=== PATIENT | female | born 1955 | race Caucasian/White ===

== ENCOUNTER 2024-09-15 11:04 | Outpatient (AMB) | payer MEDICARE, OTHER, SELFPAY ==
--- NOTE | 2024-09-15 11:05 | AM.OFFWIN_ITS ---
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- amlodipine mg PO DAILY atorvastatin mg PO DAILY calcitriol mcg PO hydrochlorothiazide mg PO DAILY levothyroxine mcg PO DAILY losartan mg PO DAILY Do you need a note to return to daycare/school/sports/work: No HPI HPI Comments History of Present Illness Details The patient is a 69-year-old female presenting with three weeks of cough and p hlegm, which started to improve before worsening significantly at the beginning of the previous week. Accompanying this worsening is significant nasal congestion and the presence of green mucus. The patient denies fever and chills during this period. She has no history of asthma or Chronic Obstructive Pulmonary Disease (COPD) but is an ex-smoker. She attempted to manage the symptoms with DayQuil, which provided no relief. There is a history of being around sick children at her place of work, leading to concerns of acquiring an infection. Previous allergies to amoxicillin are noted, with azithromycin (Z- Navneet) previously tolerated well. Social History - Employment: Works in an [email or web address]. - No history of active smoking; former s moker. Physical Exam General: Awake, alert. No apparent distress Eyes: Sclera and conjunctiva clear bilaterally Nose: Nares with white d/c, turbinates erythematous and edematous bilat, + maxillary sinus tenderness with palpation bilaterally Ears: Tympanic membranes intact on L, dull, unable to see TM on R d/t cerumen in eAC Throat: Moist mucosa membrane, pharynx within normal limits Cardiovascular: Regular rate and rhythm Respiratory: Clear to auscultation bilaterally Discussion Notes I explained to the patient that she likely has an acute bacterial sinus infection, resulting in postnasal drip and a productive cough, which seems to correlate positively with the green mucus production. I discussed the use of azithromycin (Z-Navneet), given her allergy to amoxicillin, as the medication choice to manage her condition. I also suggested saline rinses as a supportive measure to help with nasal and sinus clearance. The need to take azithromycin with food, starting with two tablets on the first day and one tablet daily for the subsequent days, was emphasized to minimize gastrointestinal upset. We conversed about her environment at school being a potential vector for health issues, and I encouraged her to be mindful of exposure to sick children. I advised her to follow up if symptoms do not improve or worsen. Patient Instructions - Take azithromycin as prescribed: two t ablets on day one, then one tablet daily until the pack is complete. - Take medication with food to avoid sto mach upset. - Consider saline rinses to aid in clear ing nasal passages. - Monitor symptoms, and return if there is no improvement or symptoms worsen. Plan - Prescribed azithromycin for the treatm ent of acute bacterial sinusitis, due to green mucus indicative of a bacterial infection and the lack of improvement with previous medications. - Recommended supportive care through sa line rinses to alleviate sinus congestion. - Advised monitoring of symptoms for res olution or exacerbation, and consider follow-up if conditions do not improve. Patient was informed and verbally consented to the use of an ambient scribe for clinic note documentation during this visit. [facility] Social History Patient Tobacco Use Status: Never used Tobacco Physical Exam Vital Signs: Last Vital Signs Temp 97.6 F 09/15/24 11:07 Pulse 85 09/15/24 11:07 BP 136/76 09/15/24 11:07 Pulse Ox 98 09/15/24 11:07 Oxygen Delivery Method Room Air 09/15/24 11:07 BMI result Body Mass Index 46.1 Assessment & Plan Assessment & Plan (1) Acute bacterial sinusitis: Code(s): J01.90 - Acute sinusitis, unspecified; B96.89 - Other specified bacterial agents as the cause of diseases classified elsewhere (2) Post-nasal drip: Code(s): R09.82 - Postnasal drip Plan . Medications: New azithromycin For 250 mg dose pack: take 500 mg today (day 1), then 250 mg for 4 days (days 2-5) PO 5 days 6 tabs 0RF Coding Level of Care Code Est Pt Level 3 (07826) Diagnoses Acute bacterial sinusitis J01.90; B96.89 Post-nasal drip R09.82
--- OUTSIDE RECORDS SUMMARY | 2024-09-15 11:05 | XMS_ITS | Encounter Summary ---
Author Organization [facility] Address [address] [place] [address] Care Team Providers Care Therapy Aide Name Role Phone Clarita Calloway MD Primary Care Prov ider [facility] Dermatology & Laser Unavaila ble Unavailable Encounter Details Date Type Department Care Team Description 05/26/2023 Orders Only Medical Records [address] [place] [address] Abstract, Provider Social History Tobacco Use Types Packs/Day Years Used Date Smoking Tobacco: Former Cigarettes 0.5 Q uit: 04/14/2022 Smokeless Tobacco: Never Comments:started smoking at age 18 Alcohol Use Standard Drinks/Week Comments No 0 (1 standard drink = 0.6 oz pur e alcohol) Sex Assigned at Date Recorded Female 03/12/2021 10:12 AM EDT Job Start Date Occupation Industry Not on file Not on file Not on file documented as of this encounter Plan of Treatment Not on file documented as of this encounter Procedures Procedure Name Priority Date/Time Associated Diagnosis Comments OUTSIDE PATHOLOGY Routine 05/06/2023 documented in this encounter Results * OUTSIDE PATHOLOGY (05/06/2023) Provider Abstract OUTSIDE LAB documented in this encounter Visit Diagnoses Not on filedocumented in this encounter Care Teams Therapy Aide Relationship Specialty Start Date End Date Clarita Calloway MD [address] [place] [address] PCP - General Internal Medicine 03/16/22 [facility] Dermatology & Laser 07/28/23 Felipe Infante MD Specialist Plastic Surgery 07/28/23 documented as of this encounter
--- OUTSIDE RECORDS SUMMARY | 2024-09-15 11:05 | XMS_ITS | Encounter Summary ---
Author Organization [facility] Address [address] [place] [address] Care Team Providers Care Machine Stamper Name Role Phone Clarita Calloway MD Primary Care Prov ider [facility] Dermatology & Laser Unavaila ble Unavailable Encounter Details Date Type Department Care Team Description 11/07/2023 Orders Only Medical Records [address] [place] [address] Paul Arboleda MD Social History Tobacco Use Types Packs/Day Years [...] Date/Time Associated Diagnosis Comments OUTSIDE PATHOLOGY Routine 11/02/2023 documented in this encounter Results * OUTSIDE PATHOLOGY (11/02/2023) Paul Arboleda MD OUTSIDE LAB documented in this encounter Visit Diagnoses Not on filedocumented in this encounter Care Teams Machine Stamper Relationship Specialty Start Date End Date Clarita Calloway MD [address] [place] [address] PCP - General Internal Medicine 03/16/22 [facility] Dermatology & Laser 07/28/23 Felipe Infante MD Specialist Plastic Surgery 07/28/23 documented as of this encounter
--- OUTSIDE RECORDS SUMMARY | 2024-09-15 11:05 | XMS_ITS | Encounter Summary ---
Author Organization [facility] Address [address] [place] [address] Care Team Providers Care Iron Launder Operator Name Role Phone Malena Taylor MD Primary Care Provider Clarita Ojeda MD Primary Care Prov ider [facility] Dermatology & Laser Unavaila ble Unavailable Reason for Visit * Reason Comments E-prescribe Rx Request Encounter Details Date Type Department Care Team Description 12/14/2019 Refill Adult Medicine [address] [address] Malena Taylor MD E-prescribe Rx Request Social History Tobacco Use Types Packs/Day Years Used Date Smoking Tobacco: Every Day Cigarettes 0.5 Smokeless Tobacco: Never Comments:started smoking at age 18 Alcohol Use Standard Drinks/Week Comments No 0 (1 standard drink = 0.6 oz pur e alcohol) Sex Assigned at Date Recorded Female 03/12/2021 10:12 AM EDT Job Start Date Occupation Industry Not on file Not on file Not on file documented as of this encounter Miscellaneous Notes * Telephone Encounter - Saira Raymundo M.A. - 12/14/2019 2:56 PM EDT Faxed to pharmacy * Telephone Encounter - Kirsten Hopson M.A. - 12/14/2019 10:11 AM EDT Lab Results Component Value Date CHOL 286 09/15/2019 LDL 198 09/15/2019 HDL 58 09/15/2019 TRIG 151 09/15/2019 SGOT 12 08/24/2014 SGPT 9 08/24/2014 * Telephone Encounter - Vanita Vallejo - 12/14/2019 8:42 AM EDT Patient would like script to be: E-PRESCRIBED/FAXED TO PHARMACY WHEN WAS THE PATIENT'S LAST APPOINTMENT IN ADULT MEDICINE? 09/20/19 WHEN WAS THE LAST TIME THE PATIENT SAW THEIR PCP? Same as above Does patient have an upcoming appointment? Yes 12/21/19 (THE MEDICATION REQUESTED IS ON THE MED LIST ABOVE) All of the medications requested were on the CURRENT MEDS list Did you check the Pharmacy information above?: YES Patient wants: 30 -day supply Is this a mail order prescription request ? NO If the refill is from a FAXED refill request what is the RX # listed on the fax? N/A Patients current insurance carrier is: Payor: [employer] / Plan: PPO $20 ANDOVER [id number] / Product Type: PPO [id number] documented in this encounter Plan of Treatment Not on file documented as of this encounter Visit Diagnoses Not on filedocumented in this encounter Care Teams Iron Launder Operator Relationship Specialty Start Date End Date Malena Taylor MD PCP - General Internal Medicine 05/27/14 02/12/22 Clarita Calloway MD [address] [place] [address] PCP - General Internal Medicine 03/16/22 [facility] 07/28/23 Felipe Infante MD Specialist Plastic Surgery 07/28/23 documented as of this encounter
--- OUTSIDE RECORDS SUMMARY | 2024-09-15 11:05 | XMS_ITS | Encounter Summary ---
Author Organization [facility] Address [address] [place] [address] Care Team Providers Care Product Safety Specialist Name Role Phone Malena Taylor MD Primary Care Provider Clarita Ojeda MD Primary Care Prov ider [facility] Dermatology & Laser Unavaila ble Unavailable Encounter Details Date Type Department Care Team Description 03/12/2015 Pt. Referral Request [facility] MyChart [address] [place] [address] Md Segundo Social History Tobacco Use Types Packs/Day Years [...] on filedocumented in this encounter Care Teams Product Safety Specialist Relationship Specialty Start Date End Date Malena Taylor MD PCP - General Internal Medicine 05/27/14 02/12/22 Clarita Calloway MD [address] [place] [address] PCP - General Internal Medicine 03/16/22 [facility] Dermatology & Laser 07/28/23 Felipe Infante MD Specialist Plastic Surgery 07/28/23 documented as of this encounter
--- OUTSIDE RECORDS SUMMARY | 2024-09-15 11:05 | XMS_ITS | Encounter Summary ---
Author Organization [facility] Address [address] [place] [address] Care Team Providers Care C T Tech Name Role Phone Clarita Oliver MD Primary Care Prov ider Reason for Visit * Reason Comments Chronic Kidney Disease Encounter Details Date Type Department Care Team (Latest Contact Info) Description 09/04/2024 2:00 PM EST Office Visit [facility]phrology - [facility] [place] [phone] Rosas Asencio MD [address] [place] [phone] Stage 3a chronic kidney disease (CMS/HCC) (Primary Dx); Morbid obesity (CMS/HCC); Secondary hyperparathyroidism of renal origin (CMS/HCC); Primary hypertension Social History Tobacco Use Types Packs/Day Years Used Date Smoking Tobacco: Former Cigarettes 1 50.7 1 972 - 04/14/2022 Smokeless Tobacco: Never Alcohol Use Standard Drinks/Week Comments No 0 (1 standard drink = 0.6 oz pur e alcohol) Housing Instability Answer Date Recorde d Are you worried that in the next 2 months you may not have stable housing? No 07/23/2024 Food Access & Nutrition Answer Date Rec orded Do you have access to a vari ety of food including fruits and vegetables? Yes 07/23/2024 Access to Healthcare Answer Date Record ed Within the last 3 months, keily escudero many times did you visit the emergency department for your medical care? 0 07/23/2024 Health Literacy Answer Date Recorded How often do you need to hav e someone help you when you read instructions, pamphlets, or other written material from your doctor or pharmacy? Rarely 07/23/2024 Caregiver: How often do you need to have someone help you when you read instructions, pamphlets, or other written material from your doctor or pharmacy? Not on file 07/23/2024 Financial Risk Answer Date Recorded How hard is it for you to pa y for the very basics like food, housing, medical care, and air conditioning / heating? Not very hard 07/23/2024 Transportation Answer Date Recorded Has the lack of transportati on kept you from meetings, work, or from getting things needed for daily living? No Has the lack of transportati on kept you from medical appointments or from getting medications? No 07/23/2024 Social Isolation Answer Date Recorded How often do you feel lonely or isolated from th ose around you? Rarely 07/23/2024 Food Risk Answer Date Recorded Within the past 12 months we worried whether our food would run out before we got money to buy more. Never true 07/23/2024 Within the past 12 months th e food we bought just didn't last and we didn't have money to get more. Never true 07/23/2024 Dependent Care Answer Date Recorded Do you need help finding or paying for care for your loved ones. For example, child care giver or elderly care for an older adult? No 07/23/2024 Education Answer Date Recorded Do you think completing more education or training, like finishing a GED, going to college, or learning a trade, would be helpful for you? No 07/23/2024 Employment and Income Answer Date Recor ded During the last four weeks, have you been actively looking for work? No 07/23/2024 Living Situation Answer Date Recorded What is your living situation? 1 09/23/2023 Sex and Gender Information Value Date Recorded Sex Assigned at Female 07/30/2024 1:55 PM EST Gender Identity Female 07/30/2024 1:55 PM EST Sexual Orientation Straight 07/30/2024 1: 55 PM EST Job Start Date Occupation Industry Not on file Not on file Not on file documented as of this encounter Last Filed Vital Signs Vital Sign Reading Time Taken Comments Blood Pressure 165/86 09/04/2024 1:34 PM EST Pulse 64 09/04/2024 1:34 PM EST Temperature - - Respiratory Rate - - Oxygen Saturation - - Inhaled Oxygen Concentration - - Weight 126 kg (277 lb 3.2 oz) 09/04/2024 1:34 PM EST Height - - Body Mass Index 46.13 07/24/2024 7:32 AM EST documented in this encounter Ordered Prescriptions Prescription Sig Dispensed Refills Start Date End Da te amLODIPine (NORVASC) 5 mg tablet Take 1 tablet (5 mg total) by mouth 1 (one) time each day. 90 each 3 09/04/2024 08/30/2025 calcitrioL (ROCALTROL) 0.25 mcg capsule Take 1 capsule (0.25 mcg total) by mouth every other day. 45 each 3 09/04/2024 09/04/2025 documented in this encounter Progress Notes * Rosas Asencio MD - 09/04/2024 2:00 PM EST Renal follow up note : Shayla Diamond is a 69 y.o. year old female seen today for f/u HPI: Patient is a pleasant female is in my office for follow-up regarding CKD. He overall feels well. Denies any chest pain or shortness of of breath. She does not check her blood pressure readings at home He has some intolerances to antihypertensive medications. He states that she is compliant with her medication regimen he does have history of anxiety/panic attacks She does give history of taking NSAIDs Aleve for knee and ankle pain i.e. 2 tablets as needed. She is a neck smoker's. She denies any GI fluid losses like diarrhea, nausea or vomiting. Patient denies having urinary symptoms of dysuria, urgency urination frequent urination Patient denies any history of renal stones HOME MEDICATIONS: Home Medications alclomethasone (ACLOVATE) 0.05 % cream PLEASE SEE ATTACHED FOR DETAILED DIRECTIONS atorvastatin (LIPITOR) 40 mg tablet Take 1 tablet (40 mg total) by mouth 1 (one) time each day. EPINEPHrine (EpiPen 2-Navneet) 0.3 mg/0.3 mL injection INJECT NEEDED FOR ALLERGIC REACTION DIRECTED levothyroxine (SYNTHROID, LEVOTHROID) 88 mcg tablet TAKE 1 TABLET BY MOUTH EVERY DAY losartan (COZAAR) 50 mg tablet Take 1 tablet (50 mg total) by mouth 1 (one) time each day. amLODIPine (NORVASC) 5 mg tablet Take 1 tablet (5 mg total) by mouth 1 (one) time each day. calcitrioL (ROCALTROL) 0.25 mcg capsule Take 1 capsule (0.25 mcg total) by mouth every other day. ACTIVE MEDICATIONS: Current medications reviewed. ALLERGY: Allergies Allergen Reactions Amoxicillin Possible anaphylactic reaction. Seen at [facility] ER on 04/13/2021. About an hour after intake of amoxicillin for UTI and PB&J sandwich PHYSICAL EXAM: Visit Vitals BP (!) 165/86 Pulse 64 Wt 126 kg (277 lb 3.2 oz) BMI 46.13 kg/m?? OB Status Postmenopausal Smoking Status Former BSA 2.27 m?? No intake/output data recorded. No intake/output data recorded. APPEARANCE: Alert and in no acute distress par EYES: PERRLA, conjunctiva and sclera normal. EARS: External ears normal. Canals clear. NOSE/SINUS: Nares normal. Septum midline. Mucosa normal. No drainage or sinus tenderness. THROAT: no erythema or exudates NECK: Neck supple, no adenopathy, thyroid symmetric and of normal size HEART: RRR with normal S1 and S2 ,no murmurs, no gallops, no JVD appreciated LUNG: clear to auscultation ABDOMEN: Bowel sounds normoactive, no bruits, soft, non-tender, without organomegaly or palpable masses EXTREMITIES: Extremities warm and well perfused without clubbing, cyanosis, or edema NEURO: Awake, alert and oriented x 3, no focal neurological deficit, with symmetrical reflexes SKIN: Skin color, texture, turgor normal. No rashes or lesions. LABS: Phosphorus Date Value Ref Range Status 06/21/2024 3.1 2.5 - 4.5 mg/dL Final PTH Date Value Ref Range Status 06/21/2024 203.3 (H) 18.5 - 88.0 pcg/mL Final No results found for: IRON , TIBC , FERRITIN No results found for: COLORUA , CLARITYUA , SPECGRAVUA , PHUA , PROTUA , GLUCOSEUA , KETONESUA , BILIRUBINUA , BLOODUA , UROBILINOGUA , NITRITEUA ASSESSMENT 1. Stage 3a chronic kidney disease (CMS/HCC) 2. Morbid obesity (CMS/HCC) 3. Secondary hyperparathyroidism of renal origin ([facility]/HCC) 4. Primary hypertension PLAN: Chronic kidney disease stage IIIa: Given longstanding hypertension patient likely has hypertensive nephrosclerosis as a reason for elevated creatinine level I do not have a urinalysis to comment on the possibly of acute GN/interstitial disease No obstruction based on renal ultrasound She does take NSAIDs which could have contributed to her renal insufficiency. Hypertension. Patient likely has baseline essential hypertension d with superimposed hypertension due to renal parenchymal disease Patient blood pressure is inadequately controlled Obesity Second hyperparathyroidism Continue lifestyle modification Patient has been advised to lose weight I have advised patient to avoid using NSAIDs No obstruction based on renal ultrasound Patient has second hyperparathyroidism with vitamin D replacement. She can stop taking the vitamin D after she runs out of this prescription Initiated patient on calcitriol 0.25 mcg every other day with a follow-up set of lab work Creatinine slightly worse and I have taken liberty to discontinue the hydrochlorothiazide Continue losartan Initiated patient on amlodipine 5 mg daily after explained to her about the cough history of edema side effects she has been advised to continue to lose weight. She seems anxious in the office and could have a competent of whitecoat effect Target blood pressure should be systolic less than 120 and diastolic less than 80 Continue statin and keep LDL less than 100 Will check urine protein creatinine ratio-acceptable Thank you documented in this encounter Plan of Treatment Upcoming Encounters Date Type Department Care Team (Late st Contact Info) Description 11/07/2024 9:15 AM EDT Appointment Bone Density - [address] [phone] 01/22/2025 8:30 AM EDT Office Visit Adult Medicine [facility] - [address] [phone] Clarita Oliver MD [address] [place] [address] 03/12/2025 4:00 PM EDT Office Visit Nephrology - [address] [phone] Rosas Asencio MD [address] [place] [address] Scheduled Orders Name Type Priority Associated Diagnoses Orde r Schedule BUN Lab Routine Stage 3a chronic kidney disease (CMS/HCC) Morbid obesity (CMS/HCC) Secondary hyperparathyroidism of renal origin (CMS/HCC) Primary hypertension Expected: 01/08/2025, Expires: 07/13/2025 Creatinine Lab Routine Stage 3a chronic kidney disease (CMS/HCC) Morbid obesity (CMS/HCC) Secondary hyperparathyroidism of renal origin (CMS/HCC) Primary hypertension Expected: 01/08/2025, Expires: 07/13/2025 Electrolyte panel Lab Routine Stage 3a chronic kidney disease (CMS/HCC) Morbid obesity (CMS/HCC) Secondary hyperparathyroidism of renal origin (CMS/HCC) Primary hypertension Expected: 01/08/2025, Expires: 07/13/2025 Protein and creatinine with ratio, urine Lab Routine Stage 3a chronic kidney disease (CMS/HCC) Morbid obesity (CMS/HCC) Secondary hyperparathyroidism of renal origin (CMS/HCC) Primary hypertension Expected: 01/08/2025, Expires: 07/13/2025 PTH, intact and calcium Lab Routine Stage 3a chronic kidney disease (CMS/HCC) Morbid obesity (CMS/HCC) Secondary hyperparathyroidism of renal origin (CMS/HCC) Primary hypertension Expected: 01/08/2025, Expires: 07/13/2025 Parathyroid hormone intact Lab Routine Stage 3a chronic kidney disease (CMS/HCC) Morbid obesity (CMS/HCC) Secondary hyperparathyroidism of renal origin (CMS/HCC) Primary hypertension Expected: 01/08/2025, Expires: 07/13/2025 Calcium Lab Routine Stage 3a chronic kidney disease (CMS/HCC) Morbid obesity (CMS/HCC) Secondary hyperparathyroidism of renal origin (CMS/HCC) Primary hypertension Expected: 01/08/2025, Expires: 07/13/2025 Phosphorus Lab Routine Stage 3a chronic kidney disease (CMS/HCC) Morbid obesity (CMS/HCC) Secondary hyperparathyroidism of renal origin (CMS/HCC) Primary hypertension Expected: 01/08/2025, Expires: 07/13/2025 documented as of this encounter Visit Diagnoses Diagnosis Stage 3a chronic kidney disease (CMS/HCC)- Primary Morbid obesity (CMS/HCC) Morbid obesity Secondary hyperparathyroidism of renal origin (CMS/HCC) Secondary hyperparathyroidism (of renal origin) Primary hypertension Unspecified essential hypertension documented in this encounter Discontinued Medications Medication Sig Discontinue Reason Start Date End Da te hydroCHLOROthiazide (HYDRODIURIL) 25 mg tablet Take 1 tablet (25 mg total) by mouth 1 (one) time each day. 01/24/2024 09/04/2024 documented as of this encounter Additional Health Concerns Assessment Noted Time PHQ-9 Depression Total Score: 0 07/23/20 4:19 PM EST A fall risk assessment has been complete d for the patient 07/22/2024 1:31 PM EST documented as of this encounter Care Teams C T Tech Relationship Specialty Start Date End Date Clarita Oliver MD [address] [place] [phone] PCP - General Internal Medicine 07/20/24 documented as of this encounter
--- OUTSIDE RECORDS SUMMARY | 2024-09-15 11:05 | XMS_ITS | Encounter Summary ---
Author Organization [facility] Address [address] [place] [address] Care Team Providers Care Field Mechanic/Site Lead Name Role Phone Clarita Calloway MD Primary Care Prov ider [facility] Dermatology & Laser Unavaila ble Unavailable Reason for Visit * Reason Onset Date Comments Faxed Order 04/05/2024 [facility] er #[id number] Encounter Details Date Type Department Care Team Description 04/05/2024 Telephone Adult Medicine [address] [address] Clarita Calloway MD [address] [place] [phone] Faxed Order ([facility] Order #[id number]) Social History Tobacco Use Types Packs/Day Years [...] encounter Miscellaneous Notes * Telephone Encounter - Lorelei Acevedo - 04/05/2024 10:06 AM EDT Received order # [id number] from [facility], please sign, date and fax back to [phone]. [address] in providers bin for signature. documented in this encounter Plan of Treatment Not on file documented as of this encounter Visit Diagnoses Not on filedocumented in this encounter Care Teams Field Mechanic/Site Lead Relationship Specialty Start Date End Date Clarita Calloway MD [address] [place] [phone] PCP - General Internal Medicine 03/16/22 [facility] Dermatology & Laser 07/28/23 Felipe Infante MD Specialist Plastic Surgery 07/28/23 documented as of this encounter
--- OUTSIDE RECORDS SUMMARY | 2024-09-15 11:05 | XMS_ITS | Encounter Summary ---
Author Organization [facility] Address [address] [place] [address] Care Team Providers Care Care Assistant Name Role Phone Clarita Calloway MD Primary Care Prov ider [facility] Dermatology & Laser Unavaila ble Unavailable Reason for Visit * Reason Onset Date Comments Faxed Order 04/20/2024 [facility] / Order # [id number] Encounter Details Date Type Department Care Team Description 04/20/2024 Telephone Adult Medicine [address] [address] Clarita Calloway MD [address] [place] [address] [phone] Faxed Order ([facility] / Order # [id number]) Social History Tobacco Use Types Packs/Day Years [...] encounter Miscellaneous Notes * Telephone Encounter - John Srivastava - 04/20/2024 1:58 PM EDT Faxed Order # [id number] From: [facility] Date: 04/04/2024 To be signed and faxed back to [phone] Placed in provider's bin documented in this encounter Plan of Treatment Not on file documented as of this encounter Visit Diagnoses Not on filedocumented in this encounter Care Teams Care Assistant Relationship Specialty Start Date End Date Clarita Calloway MD [address] [place] [address] PCP - General Internal Medicine 03/16/22 [facility] Dermatology & Laser 07/28/23 Felipe Infante MD Specialist Plastic Surgery 07/28/23 documented as of this encounter
--- OUTSIDE RECORDS SUMMARY | 2024-09-15 11:05 | XMS_ITS | Clinical Summary ---
Author Organization [address] Address [address] [facility] [place] [address] Phone Care Team Providers Care Aerospace Stress Engineer Name Role Phone Clarita Oliver MD Primary Care Prov ider Allergies Active Allergy Reactions Criticality Noted Date Comments Amoxicillin 05/04/2021 Possible anaphylactic reaction. Seen at [facility] ER on 04/13/2021. About an hour after intake of amoxicillin for UTI and PB&J sandwich Medications Medication Sig Dispensed Refills Start Date End Date Status alclomethasone (ACLOVATE) 0.05 % cream PLEASE SEE ATTACHED FOR DETAILED DIRECTIONS 05/06/2023 Active atorvastatin (LIPITOR) 40 mg tablet Take 1 tablet (40 mg total) by mouth 1 (one) time each day. 06/14/2024 Active EPINEPHrine (EpiPen 2-Navneet) 0.3 mg/0.3 mL injection INJECT NEEDED FOR ALLERGIC REACTION DIRECTED 04/14/2021 Active losartan (COZAAR) 50 mg tablet Take 1 tablet (50 mg total) by mouth 1 (one) time each day. 06/14/2024 Active levothyroxine (SYNTHROID, LEVOTHROID) 88 mcg tablet TAKE 1 TABLET BY MOUTH EVERY DAY 90 tablet 07/22/2024 Active calcitrioL (ROCALTROL) 0.25 mcg capsule Take 1 capsule (0.25 mcg total) by mouth every other day. 45 each 3 09/04/2024 Active amLODIPine (NORVASC) 5 mg tablet Take 1 tablet (5 mg total) by mouth 1 (one) time each day. 90 each 3 09/04/2024 6 Active hydroCHLOROthiaz homa (HYDRODIURIL) 25 mg tablet Take 1 tablet (25 mg total) by mouth 1 (one) time each day. 01/24/2024 5 Discontinued Active Problems Problem Noted Date Diagnosed Date Secondary hyperparathyroidism of renal origin Morbid obesity 06/19/2024 CKD (chronic kidney disease) stage 3, GFR 30-59 ml/min 06/16/2020 Assessment & Plan (07/27/2024 4:04 PM EST): GFR has been stable around 40. Patient follows regularly with Dr. Asencio. Encouraged to keep the appointments with the specialist. Allergic rhinitis 09/06/2014 Erythrocytosis 09/06/2014 Overview (06/19/2024): Has seen Dr. Aly Fletcher Hypertension 09/06/2014 Assessment & Plan (07/27/2024 4:04 PM EST): Well controlled, today 134/76 Patient is compliant with her medications, currently on hydrochlorothiazide 25mg, and losartan 50 mg. Patient is encouraged to follow a low-salt diet and exercise as much as she can. Will continue same regimen. Leukocytosis 09/06/2014 Overview (06/19/2024): Has seen Dr. Aly Fletcher Panic attacks 09/06/2014 Solar urticaria 09/06/2014 Hyperlipidemia 08/21/2014 Assessment & Plan (07/27/2024 4:04 PM EST): Last LDL was 98. Will continue atorvastatin 40 mg a day. Patient is encouraged to follow a low fat diet and exercise regularly. Hypothyroidism 08/21/2014 Assessment & Plan (07/27/2024 4:04 PM EST): Patient currently on levothyroxine 88 mcg daily. Last TSH within normal limits. Will continue this dose. Encounters Date Type Department Care Team Description 09/04/2024 2:00 PM EST Office Visit Nephrology - [facility] [address] [place] [address] Rosas Asencio MD Stage 3a chronic kidney disease (CMS/HCC) (Primary Dx); Morbid obesity (CMS/HCC); Secondary hyperparathyroidism of renal origin (CMS/HCC); Primary hypertension 07/24/2024 7:30 AM EST Office Visit Adult Medicine [address] [phone] Clarita Interiano MD Encounter for general adult medical examination without abnormal findings (Primary Dx); Primary hypertension; Mixed hyperlipidemia; Hypothyroidism, unspecified type; Stage 3b chronic kidney disease (CMS/HCC); Postmenopausal; Pneumococcal vaccination indicated; History of tobacco use; Trigger finger of right thumb; Advance care planning 07/15/2024 Telephone Adult Medicine [address] [phone] Clarita Interiano MD from Last 3 Months Immunizations Name Administration Dates Next Due Pneumococcal conjugate 20 va lent (Prevnar 20, PCV 20) 2mo and older 07/24/2024 Pneumococcal polysaccharide 23 valent (Pneumovax 23) 2yo and older 10/03/2012 Tdap Tetanus diptheria acell ular pertussis (Boostrix; Adacel) 7yo and older 08/21/2014,03/15/2012 Surgical History Surgery Date Site/Laterality Comments OTHER SURGICAL HISTORY PROCEDURE: DENIES PREVIOUS SURGERY Medical History Medical History Date Comments Panic attacks 09/06/2014 DX:Panic attacks Hypertension 09/06/2014 DX:Hypertension Allergic rhinitis 09/06/2014 DX:Allergic rh initis Historical Medical 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; COMMENT: Has seen Dr Pierce Leukocytosis 09/06/2014 DX:Leukocytosis; COMMENT: Has seen Dr Pierce Solar urticaria 09/06/2014 DX:Solar urticar ia Family History Relation Name Status Comments Father colono ca at ag e 75 Mother dementia, hyper lipid, htn, heart valve problems Social History Tobacco Use Types Packs/Day Years Used Date Smoking Tobacco: Former Cigarettes 1 50.7 1 972 - 04/14/2022 Smokeless Tobacco: Never Tobacco Cessation:Counseling Given: Not Answered Alcohol Use Standard Drinks/Week Comments No 0 [...] Record ed Within the last 3 months, ho w many times did you visit the emergency [...] care for your loved ones. For example, early childhood worker or elderly care for an older adult? [...] file Not on file Not on file Obstetrics History Last Filed Vital Signs Vital Sign Reading Time Taken Comments Blood Pressure 165/86 09/04/2024 1:34 PM EST Pulse 64 09/04/2024 1:34 PM EST Temperature 36.1 ??C (97 ??F) 07/24/2024 7:32 AM EST Respiratory Rate 16 07/24/2024 7:32 AM EST Oxygen Saturation - - Inhaled Oxygen Concentration - - Weight 126 kg (277 lb 3.2 oz) 09/04/2024 1:34 PM EST Height 165.1 cm (5' 5 ) 07/24/2024 7:32 AM EST Body Mass Index 46.13 07/24/2024 7:32 AM EST Plan of Treatment Upcoming Encounters Date Type Department Care Team (Late st Contact Info) Description 11/07/2024 9:15 AM EDT Appointment Bone Density - [address] [phone] 01/22/2025 8:30 AM EDT Office Visit Adult Medicine [facility] - [address] [phone] Clarita Oliver MD [address] [place] [address] 03/12/2025 4:00 PM EDT [facility] [address] [place] [phone] Rosas Asencio MD [address] [place] [address] Health Maintenance Due Date Last Done Comments Zoster Vaccines (1 of 2) 01/03/1976 RSV Immunization Patients 60 + Years Old (1 - Risk 60-74 years 1-dose series) 2017 COVID-19 Vaccine (2 - Modern a risk series) 12/13/2020 11/15/2020 Lung Cancer Screening (Low Dose CT) 07/24/2022 Osteoporosis Screening (Bone Density Screening) 07/24/2022 DTaP,Tdap,and Td Vaccines (3 - Td or Tdap) 08/21/2024 08/21/2014, 03/15/2012 Hypertension/CHF/CAD Annual BMP Blood Test 06/21/2025 06/21/2024, 03/03/2023 Depression Screening 07/23/2025 07/23/2024, 07/20/2023 Social Influencers of Health Screening 07/23/2025 07/23/2024 Falls Risk Assessment 07/24/2025 07/24/2024 Medicare Annual Wellness Visit 07/24/2025 07/24/2024 Breast Cancer Screening 07/24/2026 Post poned from 1957 (Patient Refused) Colorectal Cancer Screening: Colonoscopy 11/01/2028 11/02/2023 Cholesterol Screening (Lipid Panel) 07/23/2029 07/23/2024, 12/29/2023, 12/29/2023 Hepatitis C Screening Completed 08/24/2014 Pneumococcal Vaccine: 65+ Years Completed 07/24/2024, 10/03/2012 HIB Vaccines Aged Out No longer eligi ble based on patient's age to complete this topic HPV Vaccines Aged Out No longer eligi ble based on patient's age to complete this topic Hepatitis A Vaccines Aged Out No long er eligible based on patient's age to complete this topic Hepatitis B Vaccines Aged Out No long er eligible based on patient's age to complete this topic IPV Vaccines Aged Out No longer eligi ble based on patient's age to complete this topic Influenza Vaccine Discontinued MMR Vaccines Aged Out No longer eligi ble based on patient's age to complete this topic Meningococcal ACWY Vaccine Aged Out N o longer eligible based on patient's age to complete this topic RSV Immunization Patients Under 20 months Aged Out No longer eligible b ased on patient's age to complete this topic Varicella Vaccines Aged Out No longer eligible based on patient's age to complete this topic Procedures Procedure Name Priority Date/Time Associated Diagnosis Comments CBC WITH AUTO DIFFERENTIAL Routine 07/23/2024 11:07 AM EST Primary hypertension Hypothyroidism, unspecified type CBC AND DIFFERENTIAL Routine 07/23/2024 11:07 AM EST Primary hypertension Hypothyroidism, unspecified type LIPID PANEL WITH REFLEX TO DIRECT LDL Routine 07/23/2024 11:07 AM EST Primary hypertension Hypothyroidism, unspecified type THYROID STIMULATING HORMONE WITH REFLEX TO FREE T4 AND FREE T3 Routine 07/23/2024 11:07 AM EST Primary hypertension Hypothyroidism, unspecified type BUN Routine 06/21/2024 9:22 AM EST Hyperlipidemia, unspecified hyperlipidemia type Hypertension Leukocytosis CREATININE, SERUM Routine 06/21/2024 9:2 2 AM EST Hyperlipidemia, unspecified hyperlipidemia type Hypertension Leukocytosis ELECTROLYTE PANEL Routine 06/21/2024 9:2 2 AM EST Hyperlipidemia, unspecified hyperlipidemia type Hypertension Leukocytosis CALCIUM Routine 06/21/2024 9:22 AM EST Hyperlipidemia, unspecified hyperlipidemia type Hypertension Leukocytosis PHOSPHORUS Routine 06/21/2024 9:22 AM EST Hyperlipidemia, unspecified hyperlipidemia type Hypertension Leukocytosis PARATHYROID HORMONE INTACT Routine 06/21/2024 9:22 AM EST Hyperlipidemia, unspecified hyperlipidemia type Hypertension Leukocytosis VITAMIN D 25 HYDROXY Routine 06/21/2024 9:22 AM EST Hyperlipidemia, unspecified hyperlipidemia type Hypertension Leukocytosis HM COLONOSCOPY Routine 11/02/2023 DEPRESSION SCREENING Routine 07/20/2023 HEPATITIS C SCREENING Routine 08/24/2014 from Last 3 Months or Most Recently Relevant to Health Maintenance Results * Thyroid stimulating hormone with reflex to free t4 and free t3 (07/23/2024 11:07 AM EST) TSH 1.18 0.40 - 4.00 mcIU/mL LAB CHEMISTRY METHOD 07/23/2024 4:59 PM EST [facility] Blood Venous blood specimen / Unknown Venipuncture / Unknown 07/23/2024 11:07 AM EST 07/23/2024 11:07 AM EST Clarita Oliver MD LAB BLOOD ORDERABLES [facility] [address] [place] [address], * Lipid panel with reflex to direct LDL (07/23/2024 11:07 AM EST) Cholesterol 198 0 - 200 mg/dL LAB CHEMISTRY METHOD 07/23/2024 4:54 PM [facility] Triglycerides 145 0 - 150 mg/dL LAB CHEMISTRY METHOD 07/23/2024 4:54 PM [facility] HDL 71 >=40 mg/dL LAB CHEMISTRY METHOD 07/23/2024 4:54 PM [facility] LDL Calculated 98 0 - 100 mg/dL LAB CHEMISTRY METHOD 07/23/2024 4:54 PM [facility] VLDL Cholesterol Stevie 29 mg/dL LAB CHEMISTRY METHOD 07/23/2024 4:54 PM [facility] Non HDL Chol. (LDL+VLDL) 127 <145 mg/dL LAB CHEMISTRY METHOD 07/23/2024 4:54 PM [facility] Chol/HDL Ratio 2.8 0.0 - 4.4 LAB CHEMISTRY METHOD 07/23/2024 4:54 PM [facility] Blood Venous blood specimen / Unknown Venipuncture / Unknown 07/23/2024 11:07 AM EST 07/23/2024 11:07 AM EST Clarita Oliver MD LAB BLOOD ORDERABLES [facility] [address] [place] [address], * (ABNORMAL) CBC auto differential (07/23/2024 11:07 AM EST) WBC 7.0 4.8 - 10.8 K/mcL LAB HEMETOLOGY METHOD 07/23/2024 1:16 PM EST [facility] RBC 4.80 3.80 - 4.80 M/mcL LAB HEMETOLOGY METHOD 07/23/2024 1:16 PM EST [facility] Hemoglobin 14.3 11.5 - 16.0 g/dL LAB HEMETOLOGY METHOD 07/23/2024 1:16 PM [facility] Hematocrit 44.2 35.0 - 47.0 % LAB HEMETOLOGY METHOD 07/23/2024 1:16 PM EST [facility] MCV 91.5 79.0 - 98.0 FL LAB HEMETOLOGY METHOD 07/23/2024 1:16 PM EST [facility] MCH 29.6 27.0 - 32.0 pcg LAB HEMETOLOGY METHOD 07/23/2024 1:16 PM [facility] MCHC 32.4 32.0 - 37.0 g/dL LAB HEMETOLOGY METHOD 07/23/2024 1:16 PM EST [facility] RDW 12.6 11.0 - 15.0 % LAB HEMETOLOGY METHOD 07/23/2024 1:16 PM [facility] Platelets 182 130 - 400 K/mcL LAB HEMETOLOGY METHOD 07/23/2024 1:16 PM [facility] MPV 13.0(H) 7.0 - 11.0 FL LAB HEMETOLOGY METHOD 07/23/2024 1:16 PM [facility] NRBC 0.0 <1.0 % LAB HEMETOLOGY METHOD 07/23/2024 1:16 PM [facility] NRBC Absolute 0.00 <0.10 K/mcL LAB HEMETOLOGY METHOD 07/23/2024 1:16 PM [facility] Neutrophils Relative 53.2 % LAB HEMETOLOGY METHOD 07/23/2024 1:16 PM [facility] Lymphocytes Relative 35.2 % LAB HEMETOLOGY METHOD 07/23/2024 1:16 PM [facility] Monocytes Relative 7.6 % LAB HEMETOLOGY METHOD 07/23/2024 1:16 PM [facility] Eosinophils Relative 2.9 % LAB HEMETOLOGY METHOD 07/23/2024 1:16 PM [facility] Basophils Relative 0.7 % LAB HEMETOLOGY METHOD 07/23/2024 1:16 PM [facility] Immature Granulocytes Relative 0.4 % LAB HEMETOLOGY METHOD 07/23/2024 1:16 PM [facility] Neutrophils Absolute 3.71 1.50 - 7.00 K/mcL LAB HEMETOLOGY METHOD 07/23/2024 1:16 PM [facility] Lymphocytes Absolute 2.46 1.00 - 5.00 K/mcL LAB HEMETOLOGY METHOD 07/23/2024 1:16 PM [facility] Monocytes Absolute 0.53 0.20 - 1.00 K/mcL LAB HEMETOLOGY METHOD 07/23/2024 1:16 PM [facility] Eosinophils Absolute 0.20 0.00 - 0.50 K/mcL LAB HEMETOLOGY METHOD 07/23/2024 1:16 PM [facility] Basophils Absolute 0.05 0.00 - 0.20 K/mcL LAB HEMETOLOGY METHOD 07/23/2024 1:16 PM EST [facility] Immature Granulocytes Absolute 0.03 0.00 - 0.03 K/mcL LAB HEMETOLOGY METHOD 07/23/2024 1:16 PM EST [facility] Blood Venous blood specimen / Unknown Venipuncture / Unknown 07/23/2024 11:07 AM EST 07/23/2024 11:07 AM EST Clarita Oliver MD LAB BLOOD ORDERABLES Performing Organization Address [facility] Co de Phone Number [facility] [address] [place] [address], * (ABNORMAL) Creatinine (06/21/2024 9:22 AM EST) Creatinine 1.52(H) 0.50 - 1.10 mg/dL LAB CHEMISTRY METHOD 06/21/2024 12:44 PM EST [facility] eGFR 37(L) >=60 mL/min/1. 73m2 LAB CHEMISTRY METHOD 06/21/2024 12:44 PM EST [facility] Comment:Calculation based on the??Chronic Kidney Disease Epidemiology Collaboration (CKD-EPI) equation refit??without adjustment for race. Blood Venous blood specimen / Unknown Venipuncture / Unknown 06/21/2024 9:22 AM EST 06/21/2024 9:22 AM EST Rosas Asencio MD LAB BLOOD ORDERABLES Performing Organization Address City/[facility]/ZIP Co de Phone Number [facility] [address] [place] [address], * (ABNORMAL) Vitamin D 25 hydroxy (06/21/2024 9:22 AM EST) Vit D, 25-Hydroxy 27.1(L) 30.0 - 80.0 ng/mL LAB CHEMISTRY METHOD 06/21/2024 12:52 PM EST [facility] Blood Venous blood specimen / Unknown Venipuncture / Unknown 06/21/2024 9:22 AM EST 06/21/2024 9:22 AM EST Rosas Asencio MD LAB BLOOD ORDERABLES Performing Organization Address [facility]/ZIP Co de Phone Number [facility] [address] [place] [address], [place] [phone] * (ABNORMAL) BUN (06/21/2024 9:22 AM EST) BUN 33(H) 5 - 25 mg/dL LAB CHEMISTRY METHOD 06/21/2024 12:44 PM EST [facility] Blood Venous blood specimen / Unknown Venipuncture / Unknown 06/21/2024 9:22 AM EST 06/21/2024 9:22 AM EST Rosas Asencio MD LAB BLOOD ORDERABLES Performing Organization Address [facility] Co de Phone Number [facility] [address] [place] [address], [place] [phone] * Phosphorus (06/21/2024 9:22 AM EST) Phosphorus 3.1 2.5 - 4.5 mg/dL LAB CHEMISTRY METHOD 06/21/2024 12:45 PM EST [facility] Blood Venous blood specimen / Unknown Venipuncture / Unknown 06/21/2024 9:22 AM EST 06/21/2024 9:22 AM EST Rosas Asencio MD LAB BLOOD ORDERABLES Performing Organization Address City/[facility]/ZIP Co de Phone Number [facility] [address] [place] [address], [place] [phone] * (ABNORMAL) Parathyroid hormone intact (06/21/2024 9:22 AM EST) PTH 203.3(H) 18.5 - 88.0 pcg/mL LAB CHEMISTRY METHOD 06/21/2024 1:22 PM [facility] Blood Venous blood specimen / Unknown Venipuncture / Unknown 06/21/2024 9:22 AM EST 06/21/2024 9:22 AM EST Rosas Asencio MD LAB BLOOD ORDERABLES Performing Organization Address City/[facility]/ZIP Co de Phone Number [facility] [address] [place] [address], * Calcium (06/21/2024 9:22 AM EST) Calcium 9.9 8.5 - 10.5 mg/dL LAB CHEMISTRY METHOD 06/21/2024 12:44 PM [facility] Blood Venous blood specimen / Unknown Venipuncture / Unknown 06/21/2024 9:22 AM EST 06/21/2024 9:22 AM EST Rosas Asencio MD LAB BLOOD ORDERABLES Performing Organization Address City/[facility]/ZIP Co de Phone Number [facility] [address] [place] [address], * Electrolyte panel (06/21/2024 9:22 AM EST) Sodium 140 133 - 145 mmol/L LAB CHEMISTRY METHOD 06/21/2024 12:44 PM [facility] Potassium 4.2 3.5 - 5.5 mmol/L LAB CHEMISTRY METHOD 06/21/2024 12:44 PM [facility] Chloride 104 96 - 110 mmol/L LAB CHEMISTRY METHOD 06/21/2024 12:44 PM [facility] CO2 29 21 - 32 mmol/L LAB CHEMISTRY METHOD 06/21/2024 12:44 PM [facility] Anion Gap 7 3 - 11 LAB CHEMISTRY METHOD 06/21/2024 12:44 PM [facility] Blood Venous blood specimen / Unknown Venipuncture / Unknown 06/21/2024 9:22 AM EST 06/21/2024 9:22 AM EST Rosas Asencio MD LAB BLOOD ORDERABLES [facility] ([facility]) [facility] [address] [place] [address], * Colonoscopy (11/02/2023) Colonoscopy no interpretation , abstracted Anatomical Region Laterality Modality Other Historical Provider [facility] * Depression Screening (07/20/2023) Pathologist [facility] Depression Screening abstracted Historical Provider [facility] E * Hepatitis C Screening (08/24/2014) Pathologist [facility] Hepatitis C Screening abstracted Historical Provider [facility] from Last 3 Months or Most Recently Relevant to Health Maintenance Care Teams Aerospace Stress Engineer Relationship Specialty Start Date End Date Clarita Oliver MD [address] [place] [address] [place]ERS [id number] PCP - General Internal Medicine 07/20/24
--- OUTSIDE RECORDS SUMMARY | 2024-09-15 11:05 | XMS_ITS | Encounter Summary ---
Author Organization [facility] Address [address] [place] [address] Care Team Providers Care Design Agent Name Role Phone Malena Taylor MD Primary Care Provider Clarita Ojeda MD Primary Care Prov ider [facility] Unavaila ble Unavailable Encounter Details Date Type Department Care Team Description 09/24/2021 Orders Only Adult Medicine [address] [address] Malena Taylor MD Hypothyroidism, unspecified type (Primary Dx) Social History Tobacco Use Types Packs/Day Years Used Date Smoking Tobacco: Every Day Cigarettes 0.5 Smokeless Tobacco: Never Comments:started smoking at age 18 Alcohol Use Standard Drinks/Week Comments No 0 (1 standard drink = 0.6 oz pur e alcohol) Sex Assigned at Date Recorded Female 03/12/2021 10:12 AM EDT Job Start Date Occupation Industry Not on file Not on file Not on file COVID-19 Exposure Response Date Recorded In the last month, have you been in contact with someone who was confirmed or suspected to have Coronavirus / COVID-19? No / Unsure 09/24/2021 7:55 AM EST documented as of this encounter Plan of Treatment Not on file documented as of this encounter Results * (ABNORMAL) TSH (11/09/2021 8:17 AM EDT) TSH 4.67(H) 0.40 - 4.00 uIU/ml 11/09/2021 10:35 AM EDT [facility] 11/09/2021 8:17 AM EDT 11/09/2021 8:17 AM EDT Narrative [facility] - 11/09/2021 10:35 AM EDT Release to patient->Immediate Malena Taylor MD LAB [facility] documented in this encounter Visit Diagnoses Diagnosis Hypothyroidism, unspecified type- Primary Hypothyroidism, unspecified type documented in this encounter Care Teams Design Agent Relationship Specialty Start Date End Date Malena Taylor MD PCP - General Internal Medicine 05/27/14 02/12/22 Lucius Chapman, Clarita Guy MD [address] [place] [address] PCP - General Internal Medicine 03/16/22 [facility] 07/28/23 Felipe Infante MD Specialist Plastic Surgery 07/28/23 documented as of this encounter
--- OUTSIDE RECORDS SUMMARY | 2024-09-15 11:05 | XMS_ITS | Encounter Summary ---
Author Organization [facility] Address [address] [place] [address] Care Team Providers Care Medical Technical Writer Name Role Phone Clarita Calloway MD Primary Care Prov ider [facility] Unavaila ble Unavailable Reason for Visit * Reason Onset Date Comments Medication 01/31/2024 Encounter Details Date Type Department Care Team Description 01/31/2024 Telephone Nephrology - [place] [address] [place] [phone] Rosas Asencio MD [address] [place] [id number] Medication Social History Tobacco Use Types Packs/Day Years [...] Miscellaneous Notes * Telephone Encounter - Saira Adams Luca - 01/31/2024 12:30 PM EDT Caller requesting call back from provider: Is the caller the patient? YES Reason for call back: Patient is calling stating Dr Asencio was going to prescribe her Vitamin D. It has not been sent to pharmacy. [facility] [address] [facility]. Caller offered to speak with the nurse for assistance: YES Response: Patient offered to speak with nurse for assistance and patient agreed. Message forwarded to nurse. documented in this encounter Plan of Treatment Not on file documented as of this encounter Visit Diagnoses Not on filedocumented in this encounter Care Teams Medical Technical Writer Relationship Specialty Start Date End Date Clarita Calloway MD [address] [place] [address] PCP - General Internal Medicine 03/16/22 [place] [place] [facility] 07/28/23 Felipe Infante MD Specialist Plastic Surgery 07/28/23 documented as of this encounter
--- OUTSIDE RECORDS SUMMARY | 2024-09-15 11:06 | XMS_ITS | Encounter Summary ---
Author Organization [facility] Address [address] [place] [address] Care Team Providers Care Instruction Librarian Name Role Phone Clarita Calloway MD Primary Care Prov ider [facility] Unavaila ble Unavailable Reason for Visit * Reason Onset Date Comments Faxed Order 03/09/2024 [facility] order #[id number] Encounter Details Date Type Department Care Team Description 03/09/2024 Telephone Adult Medicine [address] [address] Clarita Calloway MD [address] [place] [address] [phone] Faxed Order ([facility] order #[id number]) Social History Tobacco Use Types Packs/Day Years [...] encounter Miscellaneous Notes * Telephone Encounter - Lorraine Smith - 03/09/2024 10:34 AM EDT Received orders from [facility] order #[id number]. Please sign and fax to [phone] documented in this encounter Plan of Treatment Not on file documented as of this encounter Visit Diagnoses Not on filedocumented in this encounter Care Teams Instruction Librarian Relationship Specialty Start Date End Date Clarita Calloway MD [address] [place] [phone] PCP - General Internal Medicine 03/16/22 [facility] 07/28/23 Felipe Infante MD Specialist Plastic Surgery 07/28/23 documented as of this encounter
--- OUTSIDE RECORDS SUMMARY | 2024-09-15 11:06 | XMS_ITS | Clinical Summary ---
Author Organization [facility] Address [address] [facility] [place] [address] Care Team Providers Care Proof Plate Maker Name Role Phone Clarita Calloway MD Primary Care Prov ider [facility] Unavaila ble Unavailable Allergies Active Allergy Reactions Severity Noted Date Comments Amoxicillin 05/04/2021 Possible anaphylactic reaction. Seen at [facility] ER on 04/13/2021. About an hour after intake of amoxicillin for UTI and PB&J sandwich Medications Medication Sig Dispensed Refills Start Date End Date Status EPINEPHrine 0.3 MG/0.3ML Solution Auto-injector INJECT NEEDED FOR ALLERGIC REACTION DIRECTED 0 04/14/2021 Active alclomethasone (ACLOVATE) 0.05 % cream PLEASE SEE ATTACHED FOR DETAILED DIRECTIONS 0 05/06/2023 Active hydrochlorothiazid e (HYDRODIURIL) 25 MG tablet Take 1 Tablet by mouth daily. 90 Tablet 1 01/24/2024 Active ergocalciferol (ERGOCALCIFEROL) 1.25 MG (94816 UT) capsule Take 1 Capsule by mouth once a week for 360 days. 13 Capsule 1 01/31/2024 01/25/2025 Active levothyroxine (SYNTHROID, LEVOTHROID) 88 MCG tablet TAKE 1 TABLET BY MOUTH EVERY DAY 90 Tablet 0 04/19/2024 Active atorvastatin (LIPITOR) 40 MG tablet TAKE 1 TABLET BY MOUTH EVERY DAY 90 Tablet 1 06/14/2024 Active losartan (COZAAR) 50 MG tablet TAKE 1 TABLET BY MOUTH EVERY DAY 90 Tablet 1 06/14/2024 Active Active Problems Problem Noted Date Morbid obesity with BMI of 40.0-44.9, ad ult 09/08/2023 CKD (chronic kidney disease) stage 3, GF R 30-59 ml/min 06/16/2020 Panic attacks 09/06/2014 Hypertension 09/06/2014 Allergic rhinitis 09/06/2014 Erythrocytosis 09/06/2014 Overview: Has seen Dr. Aly Fletcher Leukocytosis 09/06/2014 Overview: Has seen Dr. Aly Fletcher Solar urticaria 09/06/2014 Hyperlipidemia 08/21/2014 Hypothyroidism 08/21/2014 Immunizations Name Administration Dates Next Due COVID-19 (Moderna) 11/15/2020 COVID-19 (Moderna) PT Reported 11/15/2020 Pneumoccoccal(Adult) Polysaccharide PPSV23 10/03 Tdap 08/21/2014,03/15/2012 Family History Relation Name Status Comments Father colono ca at ag e 75 Mother dementia, hyper lipid, htn, heart valve problems Social History Tobacco Use Types Packs/Day Years Used Date Smoking Tobacco: Former Cigarettes 0.5 Q uit: 04/14/2022 Smokeless Tobacco: Never Tobacco Cessation:Counseling Given: No Comments:started smoking at age 18 Alcohol Use Standard Drinks/Week Comments No 0 (1 standard drink = 0.6 oz pur e alcohol) Sex Assigned at Date Recorded Female 03/12/2021 10:12 AM EDT Job Start Date Occupation Industry Not on file Not on file Not on file Last Filed Vital Signs Vital Sign Reading Time Taken Comments Blood Pressure 145/83 01/24/2024 2:59 PM EDT Pulse 66 01/24/2024 2:59 PM EDT Temperature 35.8 ??C (96.5 ??F) 09/08/2023 7:56 AM ES T Respiratory Rate 14 09/08/2023 7:56 AM EST Oxygen Saturation 95% 09/08/2023 7:56 AM EST Inhaled Oxygen Concentration - - Weight 123.8 kg (272 lb 14.4 oz) 01/24/2024 2:59 PM EDT Height 165.1 cm (5' 5 ) 09/08/2023 7:56 AM EST Body Mass Index 45.41 09/08/2023 7:56 AM EST Plan of Treatment Health Maintenance Due Date Last Done Comments SHINGLES VACCINE (1 of 2) 2007 MAMMOGRAM 10/12/2015 10/12/2014, 03/17/2013 BONE DENSITY SCREENING 2022 PNEUMOCOCCAL VACCINE (2 - PCV) 2022 10/03/2012 FALL RISK ASSESSMENT 03/10/2024 03/10/2023, 01/07/20 INFLUENZA (#1) 2024 05/04/2021 (Refu sed), 06/16/2020 (Refused) DEPRESSION SCREEN 07/20/2024 07/20/2023, , 01/06/2022 BMI CHECK/ADVISE 08/15/2024 01/24/2024, , 09/13/2023, Additional history exists DTAP/TDAP/TD (3 - Td or Tdap) 08/21/2024 08/21/2014, 03/15/2012 COLON CANCER SCREENING 11/01/2028 , 11/02/2023 (External Completion), 08/30/2017 (External Completion of test per patient (Patient reports normal results)), Additional history exists CHOLESTEROL SCREENING 12/28/2028 12/29/2023 , 06/16/2022, 09/24/2021, Additional history exists Covid-19 Vaccine (3 - 2022-24 season) 2112 11/15/2020, 11/15/2020 Postponed from 04/15/2024 (Patient Refused) HEPATITIS C SCREENING Completed 08/24/2014 Care Teams Proof Plate Maker Relationship Specialty Start Date End Date Clarita Calloway MD [address] [place] [id number] PCP - General Internal Medicine 03/16/22 [facility] 07/28/23 Felipe Infante MD Specialist Plastic Surgery 07/28/23
--- OUTSIDE RECORDS SUMMARY | 2024-09-15 11:06 | XMS_ITS | Encounter Summary ---
Author Organization [facility] Address [address] [place] [address] Care Team Providers Care Certification Technician Name Role Phone Clarita Calloway MD Primary Care Prov ider [facility] Unavaila ble Unavailable Encounter Details Date Type Department Care Team Description 03/02/2024 Home Health Certification Medical Records [address] [place] [address] [facility], [facility] [address] [facility] [place] [address] Social History Tobacco Use Types Packs/Day Years [...] on filedocumented in this encounter Care Teams Certification Technician Relationship Specialty Start Date End Date Clarita Calloway MD [address] [place] [address] PCP - General Internal Medicine 03/16/22 [facility] 07/28/23 Felipe Infante MD Specialist Plastic Surgery 07/28/23 documented as of this encounter
--- OUTSIDE RECORDS SUMMARY | 2024-09-15 11:06 | XMS_ITS | Encounter Summary ---
Author Organization [facility] Address [address] [place] [address] Care Team Providers Care Fiberglass Finisher Name Role Phone Malena Taylor MD Primary Care Provider Clarita Ojeda MD Primary Care Prov ider [facility] Unavaila ble Unavailable Encounter Details Date Type Department Care Team Description 06/25/2014 Release of Information Medical Records [address] [place] [address] Abstract, Provider Social History Tobacco Use Types Packs/Day Years Used Date Smoking Tobacco: Every Day Cigarettes 0.5 Smokeless Tobacco: Never Comments:started smoking at age 18 Alcohol Use Standard Drinks/Week Comments Not Asked 0 (1 standard drink = 0.6 oz pur e alcohol) Sex Assigned at Date Recorded Female 03/12/2021 10:12 AM EDT Job Start Date Occupation Industry Not on file Not on file Not on file documented as of this encounter Plan of Treatment Not on file documented as of this encounter Visit Diagnoses Not on filedocumented in this encounter Care Teams Fiberglass Finisher Relationship Specialty Start Date End Date Malena Taylor MD PCP - General Internal Medicine 05/27/14 02/12/22 Clarita Calloway MD [address] [place] [address] PCP - General Internal Medicine 03/16/22 [facility] 07/28/23 Felipe Infante MD Specialist Plastic Surgery 07/28/23 documented as of this encounter
--- OUTSIDE RECORDS SUMMARY | 2024-09-15 11:06 | XMS_ITS | Encounter Summary ---
Author Organization [facility] Address [address] [place] [address] Care Team Providers Care Animal Breeder Name Role Phone Clarita Calloway MD Primary Care Prov ider [facility] Unavaila ble Unavailable Encounter Details Date Type Department Care Team Description 01/25/2024 Pt. Non Urgent Medical Question Nephrology - [place] [address] [place] [address] Rosas Asencio MD [address] [place] [address] Social History Tobacco Use Types Packs/Day Years [...] on filedocumented in this encounter Care Teams Animal Breeder Relationship Specialty Start Date End Date Clarita Calloway MD [address] [place] [phone] PCP - General Internal Medicine 03/16/22 [facility] 07/28/23 Felipe Infante MD Specialist Plastic Surgery 07/28/23 documented as of this encounter
--- OUTSIDE RECORDS SUMMARY | 2024-09-15 11:06 | XMS_ITS | Encounter Summary ---
Author Organization [facility] Address [address] [place] [address] Care Team Providers Care Fish Farm Laborer Name Role Phone Clarita Calloway MD Primary Care Prov ider [facility] Unavaila ble Unavailable Encounter Details Date Type Department Care Team Description 01/30/2024 Pt. Non Urgent Medical Question Nephrology - [place] [address] [place] [address] Rosas Asencio MD [address] [place] [phone] Social History Tobacco Use Types Packs/Day Years [...] on filedocumented in this encounter Care Teams Fish Farm Laborer Relationship Specialty Start Date End Date Clarita Calloway MD [address] [place] [address] PCP - General Internal Medicine 03/16/22 [facility] 07/28/23 Felipe Infante MD Specialist Plastic Surgery 07/28/23 documented as of this encounter
--- OUTSIDE RECORDS SUMMARY | 2024-09-15 11:06 | XMS_ITS | Encounter Summary ---
Author Organization [facility] Address [address] [place] [address] Care Team Providers Care Dairy Department Manager Name Role Phone Clarita Calloway MD Primary Care Prov ider [facility] Unavaila ble Unavailable Reason for Visit * Reason Onset Date Comments Faxed Order 03/09/2024 [facility] #[id number] Encounter Details Date Type Department Care Team Description 03/09/2024 Telephone Adult Medicine [address] [address] Clarita Calloway MD [address] [place] [address] [phone] Faxed Order ([facility] #[id number]) Social History Tobacco Use Types Packs/Day Years [...] encounter Miscellaneous Notes * Telephone Encounter - Pratibha Martinez - 03/09/2024 3:11 PM EDT Received faxed order [id number] from [facility] received an dplaced in provider bin. Please review,sign, and fax to [phone]. documented in this encounter Plan of Treatment Not on file documented as of this encounter Visit Diagnoses Not on filedocumented in this encounter Care Teams Dairy Department Manager Relationship Specialty Start Date End Date Clarita Calloway MD [address] [place] [address] PCP - General Internal Medicine 03/16/22 [facility] 07/28/23 Felipe Infante MD Specialist Plastic Surgery 07/28/23 documented as of this encounter
[2024-09-15 11:07] VITALS: BP 136/76; PULSE 85; TEMP 36.4; O2SAT 98; BMI 46.1
== END 2024-09-15 11:17 | disposition home or self-care (01) ==
PROVIDERS: PCP Internal Medicine; Visit Provider Nurse Practitioner Family
DX: J01.90 Acute sinusitis, unspecified (principal); B96.89 Other specified bacterial agents as the cause of diseases classified elsewhere; R09.82 Postnasal drip

== ENCOUNTER 2024-11-02 10:01 | Outpatient (AMB) | payer MEDICARE, OTHER, SELFPAY ==
--- NOTE | 2024-11-02 10:03 | AM.OFFWIN_ITS ---
Intake Vital Signs 11/02/24 10:04 Height 5 ft 5 in Weight 283 lb BMI 47.1 BP 130/90 H Blood Pressure Location Rt brachial Position Sitting Pulse 53 Pulse Source Pulse Oximeter Pulse Oximetry (%) 96 Oxygen Delivery Method Room Air Intake Visit Reasons: EP SOB after exertion Intake Note: Patient here for SOB that has worsened over the past week. Patient Tobacco Use Status: Never used Tobacco Allergies amoxicillin Allergy (Severe, Verified 11/02/24 10:07) Anaphylaxis Do you need a note to return to daycare/school/sports/work: No HPI HPI Comments History of Present Illness Details History of Present Illness - The patient is a 69-year-old female pr esenting with shortness of breath on exertion. - She experiences shortness of breath du ring walks, even within her home environment. - This issue, previously mild, worsened significantly over the last two weeks. - No chest pain, abdominal pain, back pa in, arm pain numbness or tingling, or neck pain nor nausea or sweating accompanies these episodes. - The patient has a recorded heart rate of 53 bpm but has not been previously diagnosed with bradycardia or informed about this condition. - She does note that her shortness of br eath may have coincided with a new medication her kidney doctor, Dr Asencio put her on, Nebivolol about 2 weeks ago. Physical Exam General: Cooperative, healthy appearing, comfortable, no acute distress and well developed Orientation: Patient oriented x3 Limitations: No limitations Head: Normal to inspection Ears: Hearing grossly normal bilaterally Nose: Normal External nose present Face and sinus: Normal facial exam Eyes: Appearance normal, both eyes and all related structures Neck: Normal visual inspection and Yes full ROM Respiratory: Normal respiratory effort and able to speak in complete sentences. Clear to auscultation bilaterally Cardiovascular: Bradycardic rate and regular rhythm. Skin: No rashes or lesions noted Neuro: Patient oriented x3 Extremities: Normal to inspection PFSH Social History Patient Tobacco Use Status: Never used Tobacco Review of Systems Const All systems reviewed & are unremarkable except as noted in HPI and below Physical Exam Vital Signs: Last Vital Signs Pulse 53 11/02/24 10:04 BP 130/90 H 11/02/24 10:04 Pulse Ox 96 11/02/24 10:04 Oxygen Delivery Method Room Air 11/02/24 10:04 BMI result Body Mass Index 47.1 Office Procedures EKG 58439-Eryxnubndmgtqynbc, Complete Assessment & Plan Assessment & Plan (1) Bradycardia, drug induced: Code(s): R00.1 - Bradycardia, unspecified; T50.905A - Adverse effect of unspecified drugs, medicaments and biological substances, initial encounter Plan: An EKG will be conducted to determine if the patient's bradycardia is due to a conduction block or normal sinus bradycardia, which may be contributing to her dyspnea. Immediate evaluation of the EKG results will guide further care, potentially including an emergency department referral if indicated. Careful re view and patient-centered education will ensure a comprehensive understanding of her condition and necessary next steps. EKG showed sinus tachycardia with a rate of 51 beats per minute. This is likely secondary to her starting nebivolol, a beta-rashad. I recommended she called Dr. Asencio's office today and tell him what is happening and he can change her medication. Recommended she stop taking the beta rashad, she has already taken it today. Most importantly, she was educated on purchasing a pulse oximeter to measure her heart rate to ensure that after she stopped taking the beta-rashad, her heart rate returns to a normal rate of between 60 and 100 beats per minute. If it does not go back up after stopping the beta-rashad, she was instructed to go to the emergency department for further workup. However, I do not anticipate that happening. Patient understands and agrees with plan. Patient was informed and verbally consented to the use of an ambient scribe for clinic note documentation during this visit. (2) Dyspnea on exertion: Code(s): R06.09 - Other forms of dyspnea Plan: as above Coding Level of Care Code New Pt Level 4 (45177) Diagnoses Bradycardia, drug induced R00.1; T50.905A Dyspnea on exertion R06.09 CPT Codes EKG - CPT: 00448-[id number], Complete ([id number])
[2024-11-02 10:04] VITALS: BP 130/90; PULSE 53; O2SAT 96; BMI 47.1
--- OUTSIDE RECORDS SUMMARY | 2024-11-02 11:46 | XMS_ITS | Encounter Summary ---
Author Organization [facility] Address [address] [place] [address] Care Team Providers Care Image Editor Name Role Phone Clarita Calloway MD Primary Care Prov ider [facility] Unavaila ble Unavailable Reason for Visit * Reason Onset Date Comments Faxed Order 03/09/2024 [facility] order #[id number] Encounter Details Date Type Department Care Team Description 03/09/2024 Telephone Adult Medicine [address] [address] Clarita Calloway MD [address] [place] [address] [phone] Faxed Order ([facility] order #[id number]) Social History Tobacco Use Types Packs/Day Years [...] Received orders from [facility] order #[id number]. Please sign and fax to [phone] documented in this encounter Plan of Treatment Not on file documented as of this encounter Visit Diagnoses Not on filedocumented in this encounter Care Teams Image Editor Relationship Specialty Start Date End Date Clarita Calloway MD [address] [place] [address] PCP - General Internal Medicine 03/16/22 [facility] 07/28/23 Felipe Infante MD Specialist Plastic Surgery 07/28/23 documented as of this encounter
--- OUTSIDE RECORDS SUMMARY | 2024-11-02 11:46 | XMS_ITS | Patient Health Record ---
Author Organization [facility] ver[facility]ica Points Address [address] [facility] [place] [address] Care Team Providers Care Mortgage Loan Funder Name Role Phone Clarita Welch Primary Care Provider Glenny Carvalho Unavailable [phone] Allergies Allergen (clinical drug ingredient) Drug/Non Drug Allergy documented on EMR Reaction Allergy Type Onset Date Status amoxicillin Amoxicillin bp drops,hives Drug Allergy Active Reason For Referral No Information Medications Medication SIG (Take, Route, Frequency, Duration) Notes Start Date End Date Status Levothyroxine Sodium 125 MCG 1 tablet in the morning on an empty stomach Orally Once a day for 30 day(s) Active Atorvastatin Calcium 40 MG 1 tablet Oral ly Once a day for 30 day(s) Active hydroCHLOROthiazide 25 MG 1 tablet in th e morning Orally Once a day for 30 day(s) Active Social History Tobacco Use: Social History Observation Description Date Details (start date - stop date) Former Smoker NA - NA Tobacco Use/Smoking Question Answer Notes Are you a: former smoker Additional Findings: Tobacco Non-User Current no n-smoker Alcohol Screen Question Answer Notes Did you have a drink containing alcohol in the p ast year? No Points 0 Interpretation Negative Tobacco use other than smoking: Question Answer Notes Are you an other tobacco user? 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 confirmed Problem 92801630 Osteoarthritis o f left ankle and foot (M19.072) Active confirmed Plan Of Treatment No Information Insurance Providers Payer Name Payer Address Payer Phone Subscriber Number Group Number Insured Name Patient Relationship to Insured Coverage Start Date Coverage End Date Medicare National Govt Sv[employer] [address] [place] [address] [id number] Shayla Diamond Self - patient is the insured [employer] ([facility]) [address] [place] [address] [phone] [id number] Shayla Diamond Self - patient is the insured Medical (General) History Medical History History ICD Code High blood pressure thyroid Measles Mumps Chicken pox Surgical History Surgery Date(Month/Year)
--- OUTSIDE RECORDS SUMMARY | 2024-11-02 11:46 | XMS_ITS | Clinical Summary ---
Author Organization [facility] Address [address] [place] [address] Care Team Providers Care Veterans Service Representative Name Role Phone Malena Taylor MD Primary Care Provider [phone] Allergies No known active allergies Medications Medication Sig Dispensed Refills Start Date End Date Status aspirin EC 81 MG tablet Take 81 mg by mouth daily. 0 Active atorvastatin (LIPITOR) tablet 40 mg Take 40 mg by mouth daily. 0 Active hydroCHLOROthiazide (HYDRODIURIL) tablet 25 mg Take 25 mg by mouth daily. 0 Active levothyroxine (SYNTHROID) tablet 50 mcg Take 50 mcg by mouth every morning on an empty stomach. 0 Active Active Problems Problem Noted Date Diagnosed Date Erythrocytosis 04/08/2021 Tobacco use disorder 04/08/2021 Hypertension 09/06/2014 Panic attacks 09/06/2014 Hyperlipidemia 08/21/2014 Subclinical hypothyroidism 08/21/2014 Family History Medical History Relation Name Comments Cancer Father Hypertension Mother Relation Name Status Comments Father Mother Social History Tobacco Use Types Packs/Day Years Used Date Smoking Tobacco: Every Day Cigarettes 1 50 Started: 1970 Smokeless Tobacco: Never Tobacco Cessation:Ready to Q uit: No; Counseling Given: Yes Alcohol Use Standard Drinks/Week Comments Never 0 (1 standard drink = 0.6 oz pur e alcohol) Sex and Gender Information Value Date Recorded Sex Assigned at Not on file Gender Identity Not on file Sexual Orientation Not on file Job Start Date Occupation Industry Not on file Not on file Not on file Last Filed Vital Signs Vital Sign Reading Time Taken Comments Blood Pressure 151/71 04/08/2021 9:01 AM EDT Pulse 71 04/08/2021 9:01 AM EDT Temperature 36.2 ??C (97.1 ??F) 04/08/2021 9:01 AM ED T Respiratory Rate - - Oxygen Saturation 97% 04/08/2021 9:01 AM EDT Inhaled Oxygen Concentration - - Weight 100.7 kg (222 lb) 04/08/2021 9:01 AM EDT Height 165.1 cm (5' 5 ) 04/08/2021 9:01 AM EDT Body Mass Index 36.94 04/08/2021 9:01 AM EDT Plan of Treatment Health Maintenance Due Date Last Done Comments Hepatitis C Screening 1955 Lung Cancer Screening (Low Dose CT) 1957 COVID-19 Vaccine (#1) 1957 Depression Screening 1969 Preventative Health Evaluation 1975 Colon Cancer Screening (Colonoscopy) 2002 Breast Cancer Screening (Mammogram) 2007 Shingrix-Zoster Vaccine (1 o f 2) 2007 Pneumococcal Vaccine (2 of 2 - PCV) 10/03/2013 10/03/2012 Fall Risk Assessment 2022 Osteoporosis Screening (DEXA Scan) 2022 Influenza Vaccine (#1) 2024 DTap / Tdap / Td (3 - Td or Tdap) 08/21/2024 08/21/2014, 03/15/2012 RSV Adult > 60+ Yrs or (1 - 1-dose 75+ series) 01/03/2032 Hepatitis B Vaccines Aged Out No long er eligible based on patient's age to complete this topic RSV Ped < 20 months Aged Out No longe r eligible based on patient's age to complete this topic Care Teams Veterans Service Representative Relationship Specialty Start Date End Date Malena Taylor MD PCP - General Internal Medicine 04/08/21
--- OUTSIDE RECORDS SUMMARY | 2024-11-02 11:46 | XMS_ITS | Encounter Summary ---
Author Organization [facility] Address [address] [place] [address] Care Team Providers Care Power Lineworker Name Role Phone Clarita Oliver MD Primary Care Prov ider Encounter Details Date Type Department Care Team ([facility] st Contact Info) Description 10/15/2024 Telephone Thoracic Surgery - [address] [place] [address] Merle Tang MA Social History Tobacco Use Types Packs/Day Years [...] care for your loved ones. For example, childcare center director or elderly care for an older adult? [...] What is your living situation? 1 09/23/2023 Comments No Sex and Gender Information Value Date Recorded Sex Assigned at Female 07/30/2024 1:55 PM EST Legal Sex Female 10:49 PM EST Gender Identity Female 07/30/2024 1:55 PM EST Sexual Orientation Straight 07/30/2024 1: 55 PM EST documented as of this encounter Progress Notes * Merle Tang MA - 10/22/2024 10:32 AM EDT Unfortunately, this patient canceled their lung cancer screening appointment on 08/30/2024. Despite phone calls and letters sent on 10/15/2024 & 10/22/2024 to schedule this appointment, we have been unsuccessful in getting a hold of them. Please re-refer this patient if they become interested in scheduling this appointment. Please contact us if you have any questions, . * Merle Tang MA - 10/15/2024 8:47 AM EST Patient canceled SDMV 08/30/2024. Called patient today left message for patient to call office to reschedule. Letter also mailed. documented in this encounter Plan of Treatment Upcoming Encounters Date Type Department Care Team (Late st Contact Info) Description 11/07/2024 9:15 AM EDT Appointment Bone Density - [address] [phone] 01/22/2025 8:30 AM EDT Office Visit Adult Medicine East - [address] [phone] Clarita Oliver MD [address] [place] [address] 06/11/2025 1:15 PM EDT [facility] [address] [place] [address] Rosas Asencio MD [address] [place] [address] documented as of this encounter Visit Diagnoses Not on filedocumented in this encounter Additional Health Concerns Assessment Noted Time PHQ-9 Depression Total Score: 0 07/23/20 24 4:19 PM EST A fall risk assessment has been complete d for the patient 07/22/2024 1:31 PM EST documented as of this encounter Care Teams Power Lineworker Relationship Specialty Start Date End Date Clarita Oliver MD [address] [place] [address] PCP - General Internal Medicine 07/20/24 documented as of this encounter
--- OUTSIDE RECORDS SUMMARY | 2024-11-02 11:46 | XMS_ITS | Encounter Summary ---
Author Organization [facility] Address [address] [place] [address] Care Team Providers Care Sewing Machine Adjuster Name Role Phone Malena Taylor MD Primary Care Provider Clarita Ojeda MD Primary Care Prov ider [facility] Unavaila ble Unavailable Encounter Details Date Type Department Care Team Description 02/23/2021 Orders Only Adult Medicine [address] [address] Jojo Nunes PA-C [address] [place] [address] Abnormal CBC (Primary Dx) Social History Tobacco Use Types [...] have Coronavirus / COVID-19? No / Unsure 02/25/2021 8:36 AM EDT documented as of this encounter Plan of Treatment Not on file documented as of this encounter Results * (ABNORMAL) CBC (AUTO DIFF PLATELET) (02/25/2021 8:37 AM EDT) [facility] WHITE BLOOD COUNT 14.1(H) 4.8 - 10.8 x10-3/uL 02/25/2021 10:44 AM EDT [facility] RED BLOOD COUNT 5.4(H) 3.8 - 4.8 x10-6/uL 02/25/2021 10:44 AM EDT [facility] Hemoglobin 16.1(H) 11.5 - 16.0 g/dL 02/25/2021 10:44 AM EDT [facility] Hematocrit 48.4(H) 35 - 47 % 02/25/2021 10:44 AM EDT [facility] VOLU[facility] 90.3 79 - 98 fL 02/25/2021 10:44 AM EDT [facility] HEMOGLOBIN 30.0 27 - 32 pg 02/25/2021 10:44 AM EDT [facility] HGB CONC 33.3 32 - 37 g/dL 02/25/2021 10:44 AM EDT [facility] RED CELL DISTRIBUTION WIDTH 14.1 11 - 15 % 02/25/2021 10:44 AM EDT [facility] PLT COUNT 231 130 - 400 x10-3/uL 02/25/2021 10:44 AM EDT [facility] PLATELET VOLUME 12.4(H) 7 - 11 fL 02/25/2021 10:44 AM EDT [facility] NR[facility] % AUTO 0.0 <1 % 02/25/2021 10:44 AM EDT [facility] # AUTO 0.00 <0.1 x10-3/uL 02/25/2021 10:44 AM EDT [facility] NEUTROPHIL 53 % 02/25/2021 11:13 AM EDT [facility] LYMPHOCYTE 27 % 02/25/2021 11:13 AM EDT [facility] ATYPICAL LYMPHOCYTE 9 % 02/25/2021 11:13 AM EDT [facility] MONOCYTE 10 % 02/25/2021 11:13 AM EDT [facility] EOSINOPHIL 0 % 02/25/2021 11:13 AM EDT [facility] BASOPHIL 1 % 02/25/2021 11:13 AM EDT [facility] NEUT # MANUAL 7.47(H) 1.5 - 7.0 x10-3/uL 02/25/2021 11:13 AM EDT [facility] ABSOLUTE LYMPH 3.81 1.0 - 5.0 x10-3/uL 02/25/2021 11:13 AM EDT [facility] REACT LYMPH ABSOLUTE CALC 1.27(H) 0 - 0 x10-3/uL 02/25/2021 11:13 AM EDT [facility] MONO ABSOLUTE CALC 1.41(H) 0.2 - 1.0 x10-3/uL 02/25/2021 11:13 AM EDT [facility] EOS ABSOLUTE CALC 0.00 0 - 0.5 x10-3/uL 02/25/2021 11:13 AM EDT [facility] BASOS ABSOLUTE CALC 0.14 0 - 0.2 x10-3/uL 02/25/2021 11:13 AM EDT [facility] RBC MORPH COMMENT 1 . 02/25/2021 11:13 AM EDT [facility] Comment:RBC: Morphology agre es with CBC PLATELET MORPHOLOGY . 02/25/2021 11:13 AM EDT [facility] Comment:PLT: Normal 02/25/2021 8:37 AM EDT 02/25/2021 8:38 AM EDT Narrative [facility] - 02/25/2021 11:13 AM EDT Release to patient->Immediate Jojo Nunes PA-C LAB [facility] documented in this encounter Visit Diagnoses Diagnosis Abnormal CBC- Primary Other abnormal blood chemistry Abnormal CBC Other abnormal blood chemistry documented in this encounter Care Teams Sewing Machine Adjuster Relationship Specialty Start Date End Date Malena Taylor MD PCP - General Internal Medicine 05/27/14 02/12/22 Clarita Calloway MD [address] [place] [address] PCP - General Internal Medicine 03/16/22 [facility] 07/28/23 Felipe Infante MD Specialist Plastic Surgery 07/28/23 documented as of this encounter
--- OUTSIDE RECORDS SUMMARY | 2024-11-02 11:46 | XMS_ITS | Encounter Summary ---
Author Organization [facility] Address [address] [place] [address] Care Team Providers Care Heel Builder Machine Name Role Phone Malena Taylor MD Primary Care Provider Clarita Ojeda MD Primary Care Prov ider [facility] Dermatology & Laser Unavaila ble Unavailable Reason for Visit * Reason Comments E-prescribe Rx Request Encounter Details Date Type Department Care Team Description 12/14/2019 Refill Adult Medicine [address] [address] Malena Taylor MD E-prescribe Rx Request Social [...] $20 ANDOVER [id number] / Product Type: PPO [id number] documented in this encounter Plan of Treatment Not on file documented as of this encounter Visit Diagnoses Not on filedocumented in this encounter Care Teams Heel Builder Machine Relationship Specialty Start Date End Date Malena Taylor MD PCP - General Internal Medicine 05/27/14 02/12/22 Clarita Calloway MD [address] [place] [address] PCP - General Internal Medicine 03/16/22 [facility] 07/28/23 Felipe Infante MD Specialist Plastic Surgery 07/28/23 documented as of this encounter
--- OUTSIDE RECORDS SUMMARY | 2024-11-02 11:46 | XMS_ITS | Encounter Summary ---
Author Organization [facility] [employer] [facility] Address [address] [place] [address] Care Team Providers Care Roll Wrapper Name Role Phone Clarita Calloway MD Primary Care Prov ider [facility] Dermatology & Laser Unavaila ble Unavailable Encounter Details Date Type Department Care Team Description 03/28/2024 Home Health Certification Medical Records [address] [place] [address] Caregivers, [facility] [address] [facility] [address] [place] [address] Social History Tobacco Use Types Packs/Day Years [...] on filedocumented in this encounter Care Teams Roll Wrapper Relationship Specialty Start Date End Date Clarita Calloway MD [address] [place] [address] PCP - General Internal Medicine 03/16/22 [facility] Dermatology & Laser 07/28/23 Felipe Infante MD Specialist Plastic Surgery 07/28/23 documented as of this encounter
--- OUTSIDE RECORDS SUMMARY | 2024-11-02 11:46 | XMS_ITS | Encounter Summary ---
Author Organization [facility] Address [address] [place] [address] Care Team Providers Care Fish Stringer Assembler Name Role Phone Malena Taylor MD Primary Care Provider Clarita Ojeda MD Primary Care Prov ider [facility] Dermatology & Laser Unavaila ble Unavailable Encounter Details Date Type Department Care Team Description 04/08/2021 Certified Drug Counselor Report Medical Records [address] [place] [address] Jordan Lu MD Social History Tobacco Use Types Packs/Day [...] filedocumented in this encounter Care Teams Fish Stringer Assembler Relationship Specialty Start Date End Date Malena Taylor MD PCP - General Internal Medicine 05/27/14 02/12/22 Clarita Calloway MD [address] [place] [address] PCP - General Internal Medicine 03/16/22 [facility] Dermatology & Laser 07/28/23 Felipe Infante MD Specialist Plastic Surgery 07/28/23 documented as of this encounter
--- OUTSIDE RECORDS SUMMARY | 2024-11-02 11:46 | XMS_ITS | Encounter Summary ---
Author Organization [facility] Address [address] [place] [address] Care Team Providers Care Truck Crane Operator Name Role Phone Malena Taylor MD Primary Care Provider Clarita Ojeda MD Primary Care Prov ider [facility] Dermat[facility] Unavaila ble Unavailable Reason for Visit * Reason Comments E-prescribe Rx Request Encounter Details Date Type Department Care Team Description 06/09/2020 Refill Adult Medicine [address] [address] Malena Taylor MD E-prescribe Rx Request Social [...] encounter Miscellaneous Notes * Telephone Encounter - Janel Suresh M.A. - 06/10/2020 10:32 AM EDT Lab Results Component Value Date CHOL 211 12/16/2019 LDL 120 12/16/2019 HDL 56 12/16/2019 TRIG 179 12/16/2019 SGOT 23 12/16/2019 SGPT 33 12/16/2019 NOV 06/16/20 * Telephone Encounter - Melinda Nagel - 06/09/2020 2:58 PM EDT Patient would like script to be: E-PRESCRIBED/FAXED TO PHARMACY WHEN WAS THE PATIENT'S LAST APPOINTMENT IN ADULT MEDICINE? 12/21/2019 WHEN WAS THE LAST TIME THE PATIENT SAW THEIR PCP? Same as above Does patient have an upcoming appointment? No-patient refused appointment, will call back to book appointment (THE MEDICATION REQUESTED IS ON THE MED [...] N/A Patients current insurance carrier is: Payor: [facility] / Plan: PPO $20 ANDOVER [id number] / Product Type: PPO [id number] documented in this encounter Plan of Treatment Not on file documented as of this encounter Visit Diagnoses Not on filedocumented in this encounter Care Teams Truck Crane Operator Relationship Specialty Start Date End Date Malena Taylor MD PCP - General Internal Medicine 05/27/14 02/12/22 Clarita Calloway MD [address] [place] [address] PCP - General Internal Medicine 03/16/22 [facility]erm[facility] 07/28/23 Felipe Infante MD Specialist Plastic Surgery 07/28/23 documented as of this encounter
--- OUTSIDE RECORDS SUMMARY | 2024-11-02 11:46 | XMS_ITS | Clinical Summary ---
Author Organization [address] Address [address] [facility] [place] [address] Phone Care Team Providers Care Delimber Operator Name Role Phone Clarita Oliver MD Primary Care Prov ider Allergies Active Allergy Reactions Criticality Noted Date Comments Amoxicillin 05/04/2021 Possible anaphylactic reaction. Seen at [facility] ER on 04/13/2021. About an hour after intake of amoxicillin for UTI and PB&J sandwich Medications alclomethasone (ACLOVATE) 0.05 % cream PLEASE SEE ATTACHED FOR DETAILED DIRECTIONS 05/06/20 23 Active atorvastatin (LIPITOR) 40 mg tablet Take 1 tablet (40 mg total) by mouth 1 (one) time each day. 06/14/20 24 Active EPINEPHrine (EpiPen 2-Navneet) 0.3 mg/0.3 mL injection INJECT NEEDED FOR ALLERGIC REACTION DIRECTED 04/14/20 21 Active losartan (COZAAR) 50 mg tablet Take 1 tablet (50 mg total) by mouth 1 (one) time each day. 06/14/20 24 Active calcitrioL (ROCALTROL) 0.25 mcg capsule Take 1 capsule (0.25 mcg total) by mouth every other day. 45 each 3 09/04/19 25 026 Active nebivoloL (Bystolic) 10 mg tablet Take 1 tablet (10 mg total) by mouth 1 (one) time each day. 90 each 3 10/17/19 25 026 Active levothyroxine (SYNTHROID, LEVOTHROID) 88 mcg tablet TAKE 1 TABLET BY MOUTH EVERY DAY 90 tablet 3 10/19/19 25 Active levothyroxine (SYNTHROID, LEVOTHROID) 88 mcg tablet TAKE 1 TABLET BY MOUTH EVERY DAY 90 tablet 07/22/20 24 025 Discontinued amLODIPine (NORVASC) 5 mg tablet Take 1 tablet (5 mg total) by mouth 1 (one) time each day. 90 each 3 09/04/19 25 025 Discontinued hydroCHLOROthi azide (HYDRODIURIL) 25 mg tablet TAKE 1 TABLET BY MOUTH EVERY DAY 90 tablet 1 10/16/19 25 025 Discontinued Active Problems Problem Noted Date Diagnosed [...] Encounters Date Type Department Care Team Description 10/15/2024 Telephone Thoracic Surgery - [place] [address] [place] [address] Merle Tang MA 09/04/2024 2:00 PM EST Office Visit Nephrology - [facility] [address] [place] [address] Rosas Asencio MD Stage 3a chronic kidney disease (CMS/HCC) (Primary Dx); Morbid obesity (CMS/HCC); Secondary hyperparathyroidism of renal origin (CMS/HCC); Primary hypertension from Last 3 Months Immunizations Name Administration [...] your loved ones. For example, child care development specialist or elderly care for an older adult? [...] Orientation Straight 07/30/2024 1: 55 PM EST Obstetrics History Last Filed Vital Signs Vital [...] 11/07/2024 9:15 AM EDT Appointment Bone Density [address] [phone] 01/22/2025 8:30 AM EDT Office Visit Adult Medicine [facility] - [address] [phone] Clarita Oliver MD [address] [place] [address] 06/11/2025 1:15 PM EDT Office Visit [facility] - [facility] [address] [place] [address] Rosas Asencio MD [address] [facility] [address] [place] [address] Health Maintenance Due Date Last Done Comments [...] Hepatitis C Screening Completed 08/24/2014 Pneumococcal Vaccine: 50+ Years Completed 07/24/2024, 10/03/2012 HIB Vaccines Aged [...] patient's age to complete this topic Meningococcal B Vacine Aged Out No lo nger eligible based on patient's age to complete this topic RSV Immunization Patients Under 20 months Aged Out No longer eligible b ased on patient's age to complete this topic Varicella Vaccines Aged Out No longer eligible based on patient's age to complete this topic Procedures Procedure Name Priority Date/Time Associated Diagnosis Comments LIPID PANEL WITH REFLEX TO DIRECT LDL Routine 07/23/2024 11:07 AM EST Primary hypertension Hypothyroidism, unspecified type CREATININE, SERUM Routine 06/21/2024 9:2 2 AM EST Hyperlipidemia, unspecified hyperlipidemia type Hypertension Leukocytosis COLONOSCOPY Routine 11/02/2023 DEPRESSION SCREENING Routine 07/20/2023 HEPATITIS C SCREENING Routine 08/24/2014 from Last 3 Months or Most Recently Relevant to Health Maintenance Results * Lipid panel with reflex to direct LDL (07/23/2024 11:07 AM EST) Cholesterol 198 0 - 200 mg/dL LAB CHEMISTRY METHOD 07/23/2024 4:54 PM [facility] Triglycerides 145 0 - 150 mg/dL LAB CHEMISTRY METHOD 07/23/2024 4:54 PM [facility] HDL 71 >=40 mg/dL LAB CHEMISTRY METHOD 07/23/2024 4:54 PM [facility] LDL Calculated 98 0 - 100 mg/dL LAB CHEMISTRY METHOD 07/23/2024 4:54 PM [facility] VLDL Cholesterol Stevie 29 mg/dL LAB CHEMISTRY METHOD 07/23/2024 4:54 PM [facility] Non HDL Chol. (LDL+VLDL) 127 <145 mg/dL LAB CHEMISTRY METHOD 07/23/2024 4:54 PM [facility] Chol/HDL Ratio 2.8 0.0 - 4.4 LAB CHEMISTRY METHOD 07/23/2024 4:54 PM [facility] Blood Venous blood specimen / Unknown Venipuncture / Unknown 07/23/2024 11:07 AM EST 07/23/2024 11:07 AM EST us Clarita Oliver MD LAB BLOOD ORDERABL ES Final Result [facility] [address] [place] [address], * (ABNORMAL) Creatinine (06/21/2024 9:22 AM EST) [facility] Creatinine 1.52(H) 0.50 - 1.10 mg/dL LAB CHEMISTRY METHOD 06/21/2024 12:44 PM EST [facility] eGFR 37(L) >=60 mL/min/1. 73m2 LAB CHEMISTRY METHOD 06/21/2024 12:44 PM EST [facility] Comment:Calculation based on the??Chronic Kidney Disease Epidemiology Collaboration (CKD-EPI) equation refit??without adjustment for race. Blood Venous blood specimen / Unknown Venipuncture / Unknown 06/21/2024 9:22 AM EST 06/21/2024 9:22 AM EST Rosas Asencio MD LAB BLOOD ORDERABLES Final Resu lt Performing Organization Address [facility] Co de Phone Number [facility] [address] [place] [address], * Colonoscopy (11/02/2023) [facility] Colonoscopy no interpretation , abstracted Anatomical Region Laterality Modality Other Historical [facility] [employer] Final Result * Depression Screening (07/20/2023) [facility] Depression Screening abstracted Historical [facility] [employer] Final Result * Hepatitis C Screening (08/24/2014) [facility] Hepatitis C Screening abstracted Historical [facility] [employer] Final Result from Last 3 Months or Most Recently Relevant to Health Maintenance Insurance MEDICARE [facility] Care Teams Delimber Operator Relationship Specialty Start Date End Date Clarita Oliver MD [address] [place] [address] PCP - General Internal Medicine 07/20/24
--- OUTSIDE RECORDS SUMMARY | 2024-11-02 11:46 | XMS_ITS | Encounter Summary ---
Author Organization [facility] Address [address] [place] [address] Care Team Providers Care Adult Literacy Teacher Name Role Phone Clarita Calloway MD Primary Care Prov ider [facility] Dermatology & Laser Unavaila ble Unavailable Encounter Details Date Type Department Care Team Description 03/02/2024 Home Health Certification Medical Records [address] [place] [address] [facility], [facility] [address] [facility] [place] [address] Social History Tobacco Use Types Packs/Day Years [...] on filedocumented in this encounter Care Teams Adult Literacy Teacher Relationship Specialty Start Date End Date Clarita Calloway MD [address] [place] [address] PCP - General Internal Medicine 03/16/22 [facility] Dermatology & Laser 07/28/23 Felipe Infante MD Specialist Plastic Surgery 07/28/23 documented as of this encounter
--- OUTSIDE RECORDS SUMMARY | 2024-11-02 11:46 | XMS_ITS | Encounter Summary ---
Author Organization [facility] Address [address] [place] [address] Care Team Providers Care Electronics Engineering Technologist Name Role Phone Malena Taylor MD Primary Care Provider Clarita Ojeda MD Primary Care Prov ider [facility] Dermatology & Laser Unavaila ble Unavailable Encounter Details Date Type Department Care Team Description 03/12/2015 Pt. Referral Request [facility] MyChart [address] [place] [address] Md Segundo Social History Tobacco Use Types [...] on filedocumented in this encounter Care Teams Electronics Engineering Technologist Relationship Specialty Start Date End Date Malena Taylor MD PCP - General Internal Medicine 05/27/14 02/12/22 Clarita Calloway MD [address] [place] [address] PCP - General Internal Medicine 03/16/22 [facility] Dermatology & Laser 07/28/23 Felipe Infante MD Specialist Plastic Surgery 07/28/23 documented as of this encounter
--- OUTSIDE RECORDS SUMMARY | 2024-11-02 11:46 | XMS_ITS | Encounter Summary ---
Author Organization [facility] Address [address] [place] [address] Care Team Providers Care Supervisor Record Press Name Role Phone Clarita Calloway MD Primary Care Prov ider [facility] Dermatology & Laser Unavaila ble Unavailable Reason for Visit * Reason Onset Date Comments Mychart Rx Refill 01/24/2024 Encounter Details Date Type Department Care Team Description 01/24/2024 Refill Adult Medicine [address] [address] Sara Man PA-C [address] [place] [address] Mychart Rx Refill Social History Tobacco Use Types Packs/Day Years [...] Telephone Encounter - Janel Suresh M.A. - 01/24/2024 4:52 PM EDT Lab Results Component Value Date NA 143 12/27/2023 K 3.9 12/27/2023 CO2 30 12/27/2023 CL 105 12/27/2023 BUN 28 12/27/2023 CREAT 1.33 12/27/2023 GLU 92 03/03/2023 CA 9.3 12/27/2023 GFR 44 12/27/2023 Last Med review 01/03/24 - PCP NOV - 04/11/24 - PCP documented in this encounter Plan of Treatment Not on file documented as of this encounter Visit Diagnoses Not on filedocumented in this encounter Care Teams Supervisor Record Press Relationship Specialty Start Date End Date Clarita Calloway MD [address] [place] [address] PCP - General Internal Medicine 03/16/22 [facility] Dermatology & Laser 07/28/23 Felipe Infante MD Specialist Plastic Surgery 07/28/23 documented as of this encounter
--- OUTSIDE RECORDS SUMMARY | 2024-11-02 11:46 | XMS_ITS | Encounter Summary ---
Author Organization [facility] Address [address] [place] [address] Care Team Providers Care In Shop Service Technician Name Role Phone Malena Taylor MD Primary Care Provider Clarita Ojeda MD Primary Care Prov ider [facility] Dermatology & Laser Unavaila ble Unavailable Encounter Details Date Type Department Care Team Description 09/24/2021 Orders Only Adult Medicine [address] [address] Malena Taylor MD Hypothyroidism, unspecified type (Primary [...] type documented in this encounter Care Teams In Shop Service Technician Relationship Specialty Start Date End Date Malena Taylor MD PCP - General Internal Medicine 05/27/14 02/12/22 Lucius Chapman, Clarita Guy MD [address] [place] [address] PCP - General Internal Medicine 03/16/22 [facility] Dermatology & Laser 07/28/23 Felipe Infante MD Specialist Plastic Surgery 07/28/23 documented as of this encounter
--- OUTSIDE RECORDS SUMMARY | 2024-11-02 11:46 | XMS_ITS | Encounter Summary ---
Author Organization [facility] Address [address] [place] [address] Care Team Providers Care Retail Pharmacy Technician Name Role Phone Clarita Calloway MD Primary Care Prov ider [facility] Dermatology & Laser Unavaila ble Unavailable Encounter Details Date Type Department Care Team Description 03/02/2024 Home Health Certification Medical Records [address] [place] [address] [facility], [facility] [address] [facility] [place] [address] Social History Tobacco Use Types Packs/Day Years [...] on filedocumented in this encounter Care Teams Retail Pharmacy Technician Relationship Specialty Start Date End Date Clarita Calloway MD [address] [place] [address] PCP - General Internal Medicine 03/16/22 [facility] Dermatology & Laser 07/28/23 Felipe Infante MD Specialist Plastic Surgery 07/28/23 documented as of this encounter
--- OUTSIDE RECORDS SUMMARY | 2024-11-02 11:46 | XMS_ITS | Encounter Summary ---
Author Organization [facility] Address [address] [place] [address] Care Team Providers Care Truck Terminal Manager Name Role Phone Malena Taylor MD Primary Care Provider Clarita Ojeda MD Primary Care Prov ider [facility] Dermatology & Laser Unavaila ble Unavailable Reason for Referral * EXTERNAL (Priority) - Authorized/Booked Specialty Diagnoses / Procedures Referred By Contac t Referred To Contact Oncology/Hematology Procedures REFERRAL TO ONCOLOGY/HEMATOLOGY (IN NETWORK) Jojo Nunes PA-C [address] [place] [address] [place] [address] [place] [address] Referral ID Status Reason Start Date Expiration Date V isits Requested Visits Authorized [id number] Authorized/B ooked 02/26/2021 05/30/2021 1 1 Encounter Details Date Type Department Care Team Description 02/26/2021 Orders Only Adult Medicine [address] [address] Jojo Nunes PA-C [address] [place] [address] [phone] Social History Tobacco Use Types Packs/Day Years [...] filedocumented in this encounter Care Teams Truck Terminal Manager Relationship Specialty Start Date End Date Malena Taylor MD PCP - General Internal Medicine 05/27/14 02/12/22 Lucius Chapman, Clarita Guy MD [address] [place] [address] PCP - General Internal Medicine 03/16/22 [facility] Dermatology & Laser 07/28/23 Felipe Infante MD Specialist Plastic Surgery 07/28/23 documented as of this encounter
--- OUTSIDE RECORDS SUMMARY | 2024-11-02 11:46 | XMS_ITS | Encounter Summary ---
Author Organization [facility] Address [address] [place] [address] Care Team Providers Care Reconciliation Accountant Name Role Phone Clarita Calloway MD Primary Care Prov ider [facility] Dermatology & Laser Unavaila ble Unavailable Encounter Details Date Type Department Care Team Description 01/30/2024 Pt. Non Urgent Medical Question Nephrology - [place] [address] [place] [address] Rosas Asencio MD [address] [place] [address] Social History Tobacco Use Types Packs/Day Years [...] on filedocumented in this encounter Care Teams Reconciliation Accountant Relationship Specialty Start Date End Date Clarita Calloway MD [address] [place] [address] PCP - General Internal Medicine 03/16/22 [facility] Dermatology & Laser 07/28/23 Felipe Infante MD Specialist Plastic Surgery 07/28/23 documented as of this encounter
--- OUTSIDE RECORDS SUMMARY | 2024-11-02 11:46 | XMS_ITS | Continuity of Care Document ---
Author Organization [facility] Address [address] [place] [address] [address] [place] [address]- Care Team Providers Care Social Worker Aide Name Role Phone Lucius Chapman MD, Clarita Lawler Primary Care Physicia n Encounter [facility] Date(s): 10/22/24 - 10/29/24 [facility] [address] [address] Attending Physician: Felipe Infante MD Referring Physician: Clarita Calloway MD Encounter Type: Office Visit Allergies, Adverse Reactions, Alerts Substance Criticality Severity Reaction Reaction Severity Status amoxicillin High criticality Severe anaphylaxis Active Medications atorvastatin 40 mg oral tablet 40 mg, 1, tablet, By Mouth, Daily at bedtime, # 30 tablet, 0 Refills, Soft Stop Start Date: 12/21/08 Stop Date: 01/19/09 Status: Ordered Quantity: 30.0 Unit: tablet Repeat number: 1 levothyroxine 88 mcg (0.088 mg) oral capsule 1 capsule = 88 mcg, By Mouth, Daily in AM, 0 Refills, Maintenance, 02/14/24 12:12:00 PM EDT, Capsule Start Date: 02/14/24 Status: Ordered Repeat number: 1 losartan 50 mg oral tablet 50 mg, 1, tablet, By Mouth, Daily at bedtime, Refills 0, Maintenance, 02/14/24 11:54:00 AM EDT Start Date: 02/14/24 Status: Ordered Repeat number: 1 Nebivolol 10 mg oral tablet 0 Refills, Maintenance, 10/22/24 8:57:00 AM EDT, Partial fill upon patient request if the prescription is for a schedule II opioid drug. Start Date: 10/22/24 Status: Ordered Repeat number: 1 Problem List Condition Confirmation Course Effective Dates Status Health St atus Informant Severe obesity Confirmed Active Vital Signs Most recent to oldest [Reference Range]: 1 Height 165.1 cm (10/22/24 8:56 AM) Weight 123 kg (10/22/24 8:56 AM) Body Mass Index [18.5-24.99 kg/m2] 45.12 kg/m2 *>HHI* (10/22/24 8:56 AM) Weight Obtained Via Standing scale (10/22/24 8:56 AM) Social History Social History Type Response Smoking Status Interested in cessat ion: No; Patient wants NRT during admission No;Smokeless tobacco user within last 30 days; Type: Cigarettes; Exposure to Secondhand Smoke: No; Tobacco use times per day: Quit smoking 1 year ago (2021); entered on: 05/30/23 Sex Sex Representation Female (finding) Implantable Device List Procedure Provider Procedure Date Device Type Site Reconstruction with Flap Felipe Infante MD 02/29/24 Sharon Baig Right Device Identifier Serial Number Lot or Batch Number Manufacturing Date Expiration Date Distinct Identification Code MRI Safety Implantable Status Assigning Authority Unknown [id number] Unknown 11/16/28 Unknown Unknown Active Unknown Patient Care team information Care Team Personnel Name: Malena Hurtado RN Position: S RN Member Role: Primary Care Nurse Name: Lucius Chapman MD, Clarita Lawler Position: Reference Physician Member Role: PCP Address: [address] [place] [address] [address] Telecom: Name: Lorelei Saeed RN Position: S RN Member Role: Primary Care Nurse Care Team Related Persons Name: HARSHIL SALINAS Name: SARAH SALINAS Insurance Providers Guarantor name: OLLIE SALINAS Health Plan Information #: 2 Payer: [facility] [employer] Member Number: [id number] Policy Number: NA Group Number: [id number] Health Plan Information #: 1 Payer: MEDICARE PART B OUTPT Member Number: [id number] Policy Number: NA Group Number: [id number]
--- OUTSIDE RECORDS SUMMARY | 2024-11-02 11:46 | XMS_ITS | Encounter Summary ---
Author Organization [facility] Address [address] [place] [address] Care Team Providers Care Kraft Mill Operator Name Role Phone Clarita Calloway MD Primary Care Prov ider [facility] Dermatology & Laser Unavaila ble Unavailable Reason for Visit * Reason Onset Date Comments Faxed Order 04/20/2024 [facility] / Order # [id number] Encounter Details Date Type Department Care Team Description 04/20/2024 Telephone Adult Medicine [address] [address] Clarita Calloway MD [address] [place] [phone] Faxed Order ([facility] / Order # [id number]) Social History Tobacco Use Types Packs/Day Years [...] 04/20/2024 1:58 PM EDT Faxed Order # [id number] From: [facility] Date: 04/04/2024 To be signed and faxed back to [phone] Placed in provider's bin documented in this encounter Plan of Treatment Not on file documented as of this encounter Visit Diagnoses Not on filedocumented in this encounter Care Teams Kraft Mill Operator Relationship Specialty Start Date End Date Clarita Calloway MD [address] [place] [address] PCP - General Internal Medicine 03/16/22 [facility] Dermatology & Laser 07/28/23 Felipe Infante MD Specialist Plastic Surgery 07/28/23 documented as of this encounter
--- OUTSIDE RECORDS SUMMARY | 2024-11-02 11:46 | XMS_ITS | Clinical Summary ---
Author Organization [facility] Address [address] [facility] [place] [address] Care Team Providers Care Process Improvement Manager Name Role Phone Clarita Calloway MD Primary Care Prov ider [facility] Dermatology & Laser Unavaila ble Unavailable Allergies Active Allergy Reactions Severity Noted Date Comments Amoxicillin 05/04/2021 Possible anaphylactic reaction. Seen at [facility] ER on 04/13/2021. About an hour [...] 1 01/24/2024 Active ergocalciferol (ERGOCALCIFEROL) 1.25 MG (16978 UT) capsule Take 1 Capsule by mouth [...] HEPATITIS C SCREENING Completed 08/24/2014 Care Teams Process Improvement Manager Relationship Specialty Start Date End Date Clarita Calloway MD [address] [place] [address] PCP - General Internal Medicine 03/16/22 [facility] Dermatology & Laser 07/28/23 Felipe Infante MD Specialist Plastic Surgery 07/28/23
--- OUTSIDE RECORDS SUMMARY | 2024-11-02 11:46 | XMS_ITS | Encounter Summary ---
Author Organization [facility] Address [address] [place] [address] Care Team Providers Care Land Acquisition Analyst Name Role Phone Clarita Calloway MD Primary Care Prov ider [facility] Dermatology & Laser Unavaila ble Unavailable Encounter Details Date Type Department Care Team Description 05/26/2023 Orders Only Medical Records [address] [place] [address] Abstract, Provider Social History Tobacco Use Types [...] on filedocumented in this encounter Care Teams Land Acquisition Analyst Relationship Specialty Start Date End Date Clarita Calloway MD [address] [place] [address] PCP - General Internal Medicine 03/16/22 [facility] Dermatology & Laser 07/28/23 Felipe Infante MD Specialist Plastic Surgery 07/28/23 documented as of this encounter
--- OUTSIDE RECORDS SUMMARY | 2024-11-02 11:46 | XMS_ITS | Encounter Summary ---
Author Organization [facility] Address [address] [place] [address] Care Team Providers Care Control Systems Eng Name Role Phone Clarita Callwoay MD Primary Care Prov ider [facility] Dermatology & Laser Unavaila ble Unavailable Encounter Details Date Type Department Care Team Description 11/07/2023 Orders Only Medical Records [address] [place] [address] Paul Arboleda MD Social History Tobacco Use [...] on filedocumented in this encounter Care Teams Control Systems Eng Relationship Specialty Start Date End Date Clarita Calloway MD [address] [place] [address] PCP - General Internal Medicine 03/16/22 [facility] Dermatology & Laser 07/28/23 Felipe Infante MD Specialist Plastic Surgery 07/28/23 documented as of this encounter
--- OUTSIDE RECORDS SUMMARY | 2024-11-02 11:46 | XMS_ITS | Encounter Summary ---
Author Organization [facility] Address [address] [place] [address] Care Team Providers Care Chopping Machine Operator Name Role Phone Clarita Calloway MD Primary Care Prov ider [facility] Dermatology & Laser Unavaila ble Unavailable Reason for Visit * Reason Onset Date Comments Faxed Order 03/09/2024 [facility] #[id number] Encounter Details Date Type Department Care Team Description 03/09/2024 Telephone Adult Medicine [address] [address] Clarita Calloway MD [address] [place] [phone] Faxed Order ([facility]/Order #[id number]) Social History Tobacco Use Types Packs/Day Years [...] 03/09/2024 3:11 PM EDT Received faxed order [id number] from [facility] ([facility]) received an dplaced in provider bin. Please review,sign, and fax to [phone]. documented in this encounter Plan of Treatment Not on file documented as of this encounter Visit Diagnoses Not on filedocumented in this encounter Care Teams Chopping Machine Operator Relationship Specialty Start Date End Date Clarita Calloway MD [address] [place] [address] PCP - General Internal Medicine 03/16/22 [facility] Dermatology & Laser 07/28/23 Felipe Infante MD Specialist Plastic Surgery 07/28/23 documented as of this encounter
--- OUTSIDE RECORDS SUMMARY | 2024-11-02 11:46 | XMS_ITS | Encounter Summary ---
Author Organization [facility] Address [address] [place] [address] Care Team Providers Care Tree Trimming Line Technician Name Role Phone Clarita Calloway MD Primary Care Prov ider [facility] Dermatology & Laser Unavaila ble Unavailable Encounter Details Date Type Department Care Team Description 01/25/2024 Pt. Non Urgent Medical Question Nephrology - [place] [address] [place] [address] Rosas Asencio MD [address] [place] [address] Social History Tobacco Use Types Packs/Day Years [...] on filedocumented in this encounter Care Teams Tree Trimming Line Technician Relationship Specialty Start Date End Date Clarita Calloway MD [address] [place] [address] PCP - General Internal Medicine 03/16/22 [facility] Dermatology & Laser 07/28/23 Felipe Infante MD Specialist Plastic Surgery 07/28/23 documented as of this encounter
== END 2024-11-02 10:52 | disposition home or self-care (01) ==
PROVIDERS: PCP Internal Medicine; Visit Provider Physician Assistant
DX: R00.1 Bradycardia, unspecified (principal); T50.905A Adverse effect of unspecified drugs, medicaments and biological substances, initial encounter; R06.09 Other forms of dyspnea

== ENCOUNTER → 2024-11-02 10:01 | Outpatient (BNVA) | payer MEDICARE, OTHER, SELFPAY | PROVIDERS: PCP Internal Medicine; Visit Provider Physician Assistant | DX: R00.1 Bradycardia, unspecified (principal); T50.905A Adverse effect of unspecified drugs, medicaments and biological substances, initial encounter; R06.09 Other forms of dyspnea | CPT/HCPCS: 93005; 99202 ==

== ENCOUNTER 2025-01-30 08:12 | Outpatient (AMB) | payer MEDICARE, OTHER, SELFPAY ==
[2025-01-30 08:15] VITALS: BP 148/88; PULSE 87; TEMP 36.7; O2SAT 96; BMI 44.9
--- NOTE | 2025-01-30 08:15 | AM.OFFWIN_ITS ---
Intake Vital Signs 01/30/25 08:15 Height 5 ft 5 in Weight 270 lb 2 oz BMI 44.9 BP 148/88 H Blood Pressure Location Lt brachial Position Sitting Pulse 87 Pulse Source Pulse Oximeter Temp 98.0 F Temp Source Oral Pulse Oximetry (%) 96 Oxygen Delivery Method Room Air Intake Visit Reasons: EP- Right leg pain Intake Note: Pt presents to the office today for c/o right leg pain that is below her knee. Pt states this started 5 days ago with no known injury. Patient Tobacco Use Status: Never used Tobacco Allergies amoxicillin Allergy (Severe, Verified 01/30/25 08:18) Anaphylaxis HPI HPI Comments History of Present Illness Details - patient is a 70-year-old female with a past medical history of CKD stage 3 complaining of right knee pain - 5 days ago woke up with Right knee preston n, took ibuprofen w/ no relief. Pain is below kneecap, cannot hardly put weight on it. - Has not tried ice - no hx of bursitis - no injury - tells me she has CKD stage 3 and no sh e is not supposed to take ibuprofen but she does take [facility] Social History Patient Tobacco Use Status: Never used Tobacco Review of Systems Const All systems reviewed & are unremarkable except as noted in HPI and below Physical Exam Vital Signs: Last Vital Signs Temp 98.0 F 01/30/25 08:15 Pulse 87 01/30/25 08:15 BP 148/88 H 01/30/25 08:15 Pulse Ox 96 01/30/25 08:15 Oxygen Delivery Method Room Air 01/30/25 08:15 BMI result Body Mass Index 44.9 Const General: cooperative, healthy appearing, comfortable and no acute distress Orientation/consciousness: patient oriented x3 Limitations: no limitations HEENT Head: Yes normal to inspection Resp Effort & Inspection: normal respiratory effort and able to speak in complete sentences Neuro General: patient oriented x3 Extrem Other: pt unable to pull pants over knee so I could not visualize the knee Right lower extremity: knee Details: tenderness Location: of the infrapatellar area, normal ROM and knee ligament exam abnormal Details: valgus stress test normal Details: laxity noted Assessment & Plan Assessment & Plan (1) Bursitis: Code(s): M71.9 - Bursopathy, unspecified Qualifiers: Bursitis location: knee Knee bursitis location: infrapatellar bursitis Laterality: right Qualified Code(s): M70.51 - Other bursitis of knee, right knee Plan: As patient can not take NSAIDs, gave her a burst of prednisone, recommended she use ice and wrap the knee. If no improvement in her pain over the next week or 2, she should follow up with her primary care doctor. Medications: New prednisone 40 mg (2 x 20 mg) PO QAM 10 tabs 0RF Coding Level of Care Code New Pt Level 3 (30637) Diagnoses Infrapatellar bursitis of right knee M70.51 Bursitis location: knee Knee bursitis location: infrapatellar bursitis Laterality: right
--- OUTSIDE RECORDS SUMMARY | 2025-01-30 08:26 | XMS_ITS | Clinical Summary ---
Author Organization [facility] Address [address] [place] [address] Care Team Providers Care Prevention Specialist Name Role Phone Malena Taylor MD Primary Care Provider [phone] Allergies No known active allergies Medications Medication [...] 71 04/08/2021 9:01 AM EDT Temperature 36.2 C (97.1 F) 04/08/2021 9:01 AM EDT Respiratory Rate - - Oxygen Saturation 97% [...] Assessment 2022 Osteoporosis Screening (DEXA Scan) 2022 DTap / Tdap / Td (3 - Td or Tdap) 08/21/2024 08/21/2014, 03/15/2012 Influenza Vaccine (Season Ended) 2025 RSV Adult > 60+ Yrs or (1 - 1-dose 75+ series) 01/03/2032 Hepatitis B Vaccines Aged Out No long er eligible based on patient's age to complete this topic RSV Ped < 20 months Aged Out No longe r eligible based on patient's age to complete this topic Care Teams Prevention Specialist Relationship Specialty Start Date End Date Malena Taylor MD PCP - General Internal Medicine 04/08/21
== END 2025-01-30 08:48 | disposition home or self-care (01) ==
PROVIDERS: PCP Internal Medicine; Visit Provider Physician Assistant
DX: M70.51 Other bursitis of knee, right knee (principal)

== ENCOUNTER → 2025-01-30 08:12 | Outpatient (BNVA) | payer MEDICARE, OTHER, SELFPAY | PROVIDERS: PCP Internal Medicine; Visit Provider Physician Assistant | DX: M70.51 Other bursitis of knee, right knee (principal) | CPT/HCPCS: 99212 ==